=== PATIENT | male | born 1965 | race Caucasian/White ===

== ENCOUNTER 2017-10-12 12:10 | Emergency (ER) | payer BC ==
[~2017-10-12] VITALS: Ht 182.9 cm; Wt 79.4 kg
[~2017-10-12 12:10] MED LIST: AZIT250 PO; BUTASPCAFT PO; CHLO25 PO; CIPR500 PO; CLIN300 PO; DICY20 PO; HYDACE5 PO; LEVFLO500 PO; LISI10 PO; LISI5 PO; MOXI400 PO; NASACORT10.8 ML NS; OXYACE5T PO; Omeprazole20 M1 PO; PROM25 PO; PSEU120ER PO; ROSU5 PO; SUDOGEST COLD PO; UNKOWN HTN MED; XYZAL; [UNRECOGNIZED DRUG - REMARK]
[2017-10-12 14:26] LABS: BASOPHILS ABSOLUTE AUTO 0.06 K/mm3 (0.00-0.23); BASOPHILS PERCENT AUTO 1 % (0-2); EOSINOPHILS ABSOLUTE AUTO 0.04 K/mm3 (0.00-0.68); EOSINOPHILS PERCENT AUTO 1 % (0-6); Hematocrit 38.1 % (37.0-53.0); Hemoglobin 13.4 g/dL (13.5-17.5); IMMATURE GRAN ABSOLUTE AUTO 0.01 K/mm3 (0.00-0.10); IMMATURE GRAN PERCENT AUTO 0 % (0-1); LYMPHOCYTES ABSOLUTE AUTO 0.77 K/mm3 (0.84-5.20); LYMPHOCYTES PERCENT AUTO 15 % (21-46); MONOCYTES ABSOLUTE AUTO 0.65 K/mm3 (0.16-1.47); MONOCYTES PERCENT AUTO 12 % (4-13); Mean Corpuscular HGB 33.6 pg (26.0-34.0); Mean Corpuscular HGB Conc 35.2 g/dL (31.5-36.5); Mean Corpuscular Volume 96 fL (80-100); Mean Platelet Volume 8.7 fL (9.1-12.4); NEUTROPHILS ABSOLUTE AUTO 3.72 K/mm3 (1.96-9.15); NEUTROPHILS PERCENT AUTO 71 % (41-73); Platelet Count 111 K/mm3 (150-400); RDW Coefficient Variation 13.3 % (11.7-14.2); RDW Standard Deviation 47.5 fL (35.1-46.3); Red Blood Cell Count 3.99 M/mm3 (4.30-5.90); White Blood Cell Count 5.25 K/mm3 (4.00-11.30)
[2017-10-12 14:51] LABS: Alanine Aminotransfer (ALT/SGP 52 U/L (12-78); Albumin, Blood 3.7 g/dL (3.4-5.0); Albumin/Globulin Ratio 0.9 (0.8-1.8); Alk Phos 160 U/L (50-136); Anion Gap 11 mmol/L (6-16); Aspartate Aminotrans (AST/SGOT 107 U/L (12-37); Bilirubin, Total 4.9 mg/dL (0.1-1.0); Blood Urea Nitrogen 7 mg/dL (8-24); Bun/Creatinine Ratio 11.9 (12.0-20.0); CO2, Blood 26 mmol/L (21-32); Calcium, Blood 8.9 mg/dL (8.5-10.1); Chloride, Blood 100 mmol/L (98-108); Creatinine, Blood 0.59 mg/dL (0.60-1.20); Ethanol (Alcohol), Blood, Med 4 mg/dL; Globulin, Blood 4.2 g/dL (2.2-4.0); Glomerular Filtration Rate >60 (60-); Glucose, Blood 84 mg/dL (70-99); Potassium, Blood 3.8 mmol/L (3.5-5.5); Sodium, Blood 137 mmol/L (136-145); Total Protein, Blood 7.9 g/dL (6.4-8.2)
[2017-10-12] MEDS ORDERED: Percocet 5-3251 EACH PO (16:56)
[2017-10-12] MEDS ORDERED: Zofran8 MG PO (16:56)
[2018-06-14] MEDS ORDERED: PSEU120ER PO (12:47)
[2018-06-15] MEDS ORDERED: OXYC5 (21:14)
== END 2017-10-12 17:05 | disposition home or self-care (01) ==
LOC: ER 12:10
PROVIDERS: Emergency Medicine
DX: G89.18 Other acute postprocedural pain (principal); M54.2 Cervicalgia; K70.10 Alcoholic hepatitis without ascites; F10.10 Alcohol abuse, uncomplicated; E80.6 Other disorders of bilirubin metabolism; I10 Essential (primary) hypertension; Z79.899 Other long term (current) drug therapy; Z87.891 Personal history of nicotine dependence
CPT/HCPCS: 36415; 72125; 80053; 85025; 96361; 96372; 96374; 96375; 99284; G0480; J1170; J1200; J2765; J7030

== ENCOUNTER → 2018-08-11 | Outpatient (CLI) | payer BC ==
[~2018-08-11] MED LIST changes: +OXYC5; +Percocet 5-3251 EACH PO; +Zofran8 MG PO
[2018-08-11 12:27] LABS: BASOPHILS PERCENT AUTO 2 % (0-2); EOSINOPHILS ABSOLUTE AUTO 0.25 K/mm3 (0.00-0.68); EOSINOPHILS PERCENT AUTO 5 % (0-6); Hematocrit 37.6 % (37.0-53.0); Hemoglobin 12.4 g/dL (13.5-17.5); IMMATURE GRAN ABSOLUTE AUTO 0.01 K/mm3 (0.00-0.10); IMMATURE GRAN PERCENT AUTO 0 % (0-1); LYMPHOCYTES ABSOLUTE AUTO 0.68 K/mm3 (0.84-5.20); LYMPHOCYTES PERCENT AUTO 14 % (21-46); MONOCYTES ABSOLUTE AUTO 0.66 K/mm3 (0.16-1.47); MONOCYTES PERCENT AUTO 14 % (4-13); Mean Corpuscular HGB 36.4 pg (26.0-34.0); Mean Corpuscular Volume 110 fL (80-100); Mean Platelet Volume 9.8 fL (9.1-12.4); NEUTROPHILS ABSOLUTE AUTO 3.07 K/mm3 (1.96-9.15); NEUTROPHILS PERCENT AUTO 64 % (41-73); Platelet Count 106 K/mm3 (150-400); RDW Standard Deviation 58.1 fL (35.1-46.3); Red Blood Cell Count 3.41 M/mm3 (4.30-5.90); White Blood Cell Count 4.77 K/mm3 (4.00-11.30)
[2018-08-11 12:30] LABS: Alanine Aminotransfer (ALT/SGP 38 U/L (12-78); Albumin, Blood 2.7 g/dL (3.4-5.0); Albumin/Globulin Ratio 0.6 (0.8-1.8); Alk Phos 122 U/L (50-136); Anion Gap 6 mmol/L (6-16); Aspartate Aminotrans (AST/SGOT 68 U/L (12-37); Blood Urea Nitrogen 10 mg/dL (8-24); Bun/Creatinine Ratio 17.2 (12.0-20.0); CO2, Blood 27 mmol/L (21-32); Calcium, Blood 8.3 mg/dL (8.5-10.1); Chloride, Blood 107 mmol/L (98-108); Creatinine, Blood 0.58 mg/dL (0.60-1.20); Globulin, Blood 4.5 g/dL (2.2-4.0); Glomerular Filtration Rate >60 (60-); Glucose, Blood 178 mg/dL (70-99); Potassium, Blood 3.9 mmol/L (3.5-5.5); Sodium, Blood 140 mmol/L (136-145); Total Protein, Blood 7.2 g/dL (6.4-8.2)
== END ==
LOC: LAB SHORT 12:05 → LAB 12:05
PROVIDERS: Nurse Practitioner Family
DX: R73.9 Hyperglycemia, unspecified (principal)
CPT/HCPCS: 80053; 83036; 85025

== ENCOUNTER 2020-09-01 21:39 | Inpatient (IN) | payer OTHER ==
[~2020-09-01] VITALS: Ht 182.9 cm; Wt 90.8 kg
[2020-09-01 22:53] LABS: BASOPHILS ABSOLUTE AUTO 0.05 K/mm3 (0.00-0.23); BASOPHILS PERCENT AUTO 1 % (0-2); EOSINOPHILS PERCENT AUTO 0 % (0-6); Hematocrit 32.8 % (37.0-53.0); Hemoglobin 11.3 g/dL (13.5-17.5); IMMATURE GRAN ABSOLUTE AUTO 0.03 K/mm3 (0.00-0.10); IMMATURE GRAN PERCENT AUTO 0 % (0-1); LYMPHOCYTES ABSOLUTE AUTO 0.47 K/mm3 (0.84-5.20); LYMPHOCYTES PERCENT AUTO 5 % (21-46); MONOCYTES ABSOLUTE AUTO 0.97 K/mm3 (0.16-1.47); MONOCYTES PERCENT AUTO 10 % (4-13); Mean Corpuscular HGB 36.3 pg (26.0-34.0); Mean Corpuscular HGB Conc 34.5 g/dL (31.5-36.5); Mean Corpuscular Volume 106 fL (80-100); Mean Platelet Volume 10.4 fL (9.1-12.4); NEUTROPHILS PERCENT AUTO 84 % (41-73); Platelet Count 88 K/mm3 (150-400); RDW Coefficient Variation 13.2 % (11.7-14.2); RDW Standard Deviation 50.7 fL (35.1-46.3); Red Blood Cell Count 3.11 M/mm3 (4.30-5.90); White Blood Cell Count 9.72 K/mm3 (4.00-11.30)
[2020-09-01 23:10] LABS: Alanine Aminotransfer (ALT/SGP 39 U/L (12-78); Albumin, Blood 2.8 g/dL (3.4-5.0); Albumin/Globulin Ratio 0.7 (0.8-1.8); Alk Phos 47 U/L (50-136); Anion Gap 6 mmol/L (6-16); Aspartate Aminotrans (AST/SGOT 58 U/L (12-37); Bilirubin, Total 5.5 mg/dL (0.1-1.0); Blood Urea Nitrogen 23 mg/dL (8-24); Bun/Creatinine Ratio 44.8 (12.0-20.0); CO2, Blood 30 mmol/L (21-32); Calcium, Blood 8.2 mg/dL (8.5-10.1); Chloride, Blood 105 mmol/L (98-108); Creatinine, Blood 0.51 mg/dL (0.60-1.20); Globulin, Blood 3.8 g/dL (2.2-4.0); Glomerular Filtration Rate >60 (60-); Glucose, Blood 312 mg/dL (70-99); Potassium, Blood 5.3 mmol/L (3.5-5.5); Sodium, Blood 141 mmol/L (136-145); Total Protein, Blood 6.6 g/dL (6.4-8.2)
[2020-09-02 01:17] LABS: BASOPHILS ABSOLUTE AUTO 0.04 K/mm3 (0.00-0.23); BASOPHILS PERCENT AUTO 0 % (0-2); EOSINOPHILS PERCENT AUTO 0 % (0-6); Hematocrit 31.4 % (37.0-53.0); Hemoglobin 10.7 g/dL (13.5-17.5); IMMATURE GRAN ABSOLUTE AUTO 0.03 K/mm3 (0.00-0.10); IMMATURE GRAN PERCENT AUTO 0 % (0-1); LYMPHOCYTES ABSOLUTE AUTO 0.54 K/mm3 (0.84-5.20); LYMPHOCYTES PERCENT AUTO 6 % (21-46); MONOCYTES ABSOLUTE AUTO 1.39 K/mm3 (0.16-1.47); MONOCYTES PERCENT AUTO 15 % (4-13); Mean Corpuscular HGB Conc 34.1 g/dL (31.5-36.5); Mean Corpuscular Volume 106 fL (80-100); Mean Platelet Volume 9.8 fL (9.1-12.4); NEUTROPHILS ABSOLUTE AUTO 7.57 K/mm3 (1.96-9.15); NEUTROPHILS PERCENT AUTO 79 % (41-73); Platelet Count 86 K/mm3 (150-400); RDW Coefficient Variation 13.2 % (11.7-14.2); Red Blood Cell Count 2.97 M/mm3 (4.30-5.90); White Blood Cell Count 9.57 K/mm3 (4.00-11.30)
--- NOTE | 2020-09-02 02:05 | NUR ---
ICU ADMIT PT BROUGHT TO ICU-10 BY KADIE FROM ER @ APPROX 0045. PT DROWSY, OPENING EYES ONLY FOR A MOMENT WHEN SPOKEN TO, THEN GOING BACK TO SLEEP. PT SLID OVER FROM RNEY TO ICU BED BY 3 STAFF MEMBERS. PROTONIX GTT @ OCTREOTIDE GTT INFUSING UPON ARRIVAL TO UNIT. IV FLUIDS THEN INITIATED PER ORDRES. PT ABLE TO ANSWER Q's APPROPRIATELY. PT REPORTS DAILY WINE DRINKING W/ PT REPORT OF "CAN'T SAY" FOR AMOUNT. PT REPORTS AMOUNT AT LEAST 1 WHOLE BOTTLE BUT NOT 2 BOTTLES. PT REPORTS LAST DRINK "YESTERDAY" 08/31/20. PT REPORTS NOT EATING ANYTHING FOR AT LEAST 2 DAYS D/T "NOT HUNGRY." PT DENYING NAUSEA, ABD PAIN/TENDERNESS OR ANY OTHER PAIN DISCOMFORT UPON ARRIVAL TO UNIT. PT VSS. MONITOR SHOWING ST, HR 100-120's. SPO2 > 92% ON RA. PT NOW SLEEPING IN RM. PT GIRLFRIEND WILLIAM UPDATED W/ PT CONSENT. WILL CONTINUE TO MONITOR & PROVIDE CARE.
[2020-09-02 03:43] LABS: Mean Corpuscular HGB 36.8 pg (26.0-34.0); Mean Corpuscular HGB Conc 34.5 g/dL (31.5-36.5); Mean Corpuscular Volume 107 fL (80-100); Mean Platelet Volume 10.5 fL (9.1-12.4); Platelet Count 77 K/mm3 (150-400); RDW Coefficient Variation 13.4 % (11.7-14.2); RDW Standard Deviation 52.1 fL (35.1-46.3); Red Blood Cell Count 2.72 M/mm3 (4.30-5.90); White Blood Cell Count 8.93 K/mm3 (4.00-11.30)
--- NOTE | 2020-09-02 03:50 | NUR ---
WEAKNESS / HR PT ATTEMPT TO GET UP FOR RESTROOM USE W/ ACCIDENTAL REMOVAL OF 2 PIV's. PT ASSISTED TO STANDING POSITION FOR URINAL USE AT BEDSIDE PER PT PREFERENCE. PT VERY WEAK, ONLY ABLE TO STAND FOR A MOMENT, HR INCREASING UP TO 150's. PT THEN ASSISTED BACK INTO BED W/ HR RETURN TO 100-110's, ST.
[2020-09-02 03:57] LABS: International Normalized Ratio 1.52; Prothrombin Time Results 15.9 Sec (9.7-11.5)
[2020-09-02 04:08] LABS: Anion Gap 4 mmol/L (6-16); Blood Urea Nitrogen 25 mg/dL (8-24); Bun/Creatinine Ratio 33.6 (12.0-20.0); CO2, Blood 31 mmol/L (21-32); Calcium, Blood 7.9 mg/dL (8.5-10.1); Chloride, Blood 104 mmol/L (98-108); Creatinine, Blood 0.75 mg/dL (0.60-1.20); Glomerular Filtration Rate >60 (60-); Glucose, Blood 386 mg/dL (70-99); Potassium, Blood 4.9 mmol/L (3.5-5.5); Sodium, Blood 139 mmol/L (136-145)
[2020-09-02 04:12] LABS: Albumin, Blood 2.6 g/dL (3.4-5.0); Albumin/Globulin Ratio 0.8 (0.8-1.8); Bilirubin, Indirect 3.6 mg/dL (0.1-0.7); Bilirubin, Total 5.6 mg/dL (0.1-1.0); Globulin, Blood 3.4 g/dL (2.2-4.0)
--- NOTE | 2020-09-02 06:29 | NUR ---
CBG, PHOS / CALL TO MD CALL TO MD MADRIGAL TO REPORT ELEVATED CBG OF 386 & PHOS OF 2.0 W/ AM LABS. MD W/ NEW ORDERS FOR CBG MONITORING, PRINCE INSULIN COVERAGE, & IV NA PHOS, SEE ORDERS.
--- NOTE | 2020-09-02 06:42 | NUR ---
SHIFT SUMMARY PT SLEEPING MAJORITY OF SHIFT. WAKES TO VERBAL STIMULI. ANSWERS MOST Q's APPROPRIATELY. PT VSS. SPO2 > 92% ON RA. MONITOR SHOWING SR-ST, HR 90's-120's W/ BRIEF, NONSUSTAINED INCREASE TO 150's UPON ACTIVITY STANDING AT BEDSIDE. PT CONTINUES TO BE VERY WEAK. PT ENCOURAGED TO USE URINAL IN BED OR SITTING UP AT EDGE OF BED W/ OUT STANDING. PT DISREGARDING STAFF ADVISEMENT OF THIS, UNCLEAR IF PT NOT FULLY UNDERSTANDING STAFF GUIDANCE OR CHOOSING TO DISREGARD. PT ONLY ATTEMPTING TO GET OOB X2 THIS SHIFT, BOTH OCCURRENCES FOR URINAL USE. PT DENIES NAUSEA, ABD PAIN/DISCOMFORT. NO EMESIS SINCE ARRIVAL TO ICU. PT NPO. PROTONIX GTT, OCTREOTIDE GTT & NA PHOS GTT INFUSING PER ORDERS.
--- NOTE | 2020-09-02 07:40 | NUR ---
ASSUMED CARE BEDSIDE REPORT RECIEVED. PT IS LAYING IN BED TURNING FROM SIDE TO SIDE. PT IS SOMNOLENT, BUT AROUSES TO VERBAL STIMULI BREIFLY. PT SPEECH IS SLURRED AND SLOW TO RESPOND, BUT PT ANSWERS SIMPLE QUESTIONS APPROPRIATELY. PT DENIES PAIN. VITAL SIGNS STABLE, PT ON ROOM AIR. PROTONIX INFUSING AT 10 ML/HR, SANDOSTATIN AT 25 ML/HR, AND SODIUM PHOS IVPB. PT WITHOUT NOTICEABLE TREMORS AT THIS TIME. PT WEAK WITH MOVEMENT. WILL CONTINUE TO MONITOR.
[2020-09-02 10:03] LABS: Influenza A, PCR Negative (NEGATIVE); Influenza B, PCR Negative (NEGATIVE); Resp Syncytial Virus, PCR Negative (NEGATIVE); SARS-Cov-2 (COVID-19) PCR, MMC Negative (NEGATIVE)
--- NOTE | 2020-09-02 17:24 | NUR ---
SHIFT SUMMARY PT WITH INCREASING CONFUSION AND IMPULSIVITY THIS AFTERNOON REQUIRING GENARO VEST. PT VITAL SIGNS HAVE REMAINED STABLE. PT REMAINS AROUSEABLE TO VERBAL STIMULI, BUT IS MORE CONFUSED AT THIS TIME. PT SHIFTING SELF IN BED INDEPENDENTLY AND ATTEMPTING TO GET UP OUT OF BED AT TIMES. PT ON 2L O2 NC. PROTONIX INFUSING AT 10 ML/HR, SANDOSTATIN AT 25 ML/HR, AND BANANA BAG AT 200 ML/HR. PT WITH MULTIPLE INCONTINENT VOIDS. PT SIGNIFICANT OTHER AT BEDSIDE TO VISIT FOR SHORT PERIOD EARLY THIS AFTERNOON. DR TOBIAS HAS SEEN PT TODAY AND REVIEWED PLAN OF CARE. WILL CONTINUE TO MONITOR AND REPORT OFF TO ONCOMING RN.
--- NOTE | 2020-09-02 19:30 | NUR ---
ASSUMED CARE OF PT, PROTONIX AND SANDOSTATIN GTTS VERIFIED WITH OFFGOING RN. PT APPEARS TO BE SLEEPING ON ARRIVAL TO ROOM, ROUSES BRIEFLY WITH SPOKEN NAME, RESPONSE IS MUMBLED AND DIFFICULT TO UNDERSTAND, ONLY OCCASIONAL WORD IS ENUNCIATED WELL ENOUGH TO UNDERSTAND. DOES OPEN EYES TO COMMAND OTHERWISE DOES NOT FOLLOW DIRECTION AT THIS TIME. PT IS RELAXED IN APPEARANCE AND RESTING WITHOUT AGITATION EVEN WITH INCREASED STIMULUS IN ROOM. OCCASIONAL SNORING RESPIRATION IS NOTED. HE DOES TURN SELF WELL SIDE TO SIDE EVEN WITH GENARO VEST RESTRAINT IN PLACE. VITAL SIGNS ARE STABLE AT THIS TIME. SATS ARE MAINTAINING WITH OXYGEN VIA NASAL CANNULA AT 1 L/MIN, RATE TEENS, NO VISIBLE INCREASED WORK OF BREATHING IS NOTED. SINUS TACH NOTED ON MONITOR, RATE LOW 100-110S, PRESSURES MAINTAINING, BRISK CAP REFILL, NO EDEMA IS NOTED. BOWEL TONES HYPOACTIVE, ABD SOFT, NO GRIMACING OR GUARDING ON LIGHT PALPATION. PT HAS BEEN INCONT OF URINE PER OFFGOING RN, WILL PLACE ATTENDS AND MONITOR FREQUENTLY.
[2020-09-02 23:35] LABS: BASOPHILS ABSOLUTE AUTO 0.09 K/mm3 (0.00-0.23); BASOPHILS PERCENT AUTO 1 % (0-2); EOSINOPHILS ABSOLUTE AUTO 0.18 K/mm3 (0.00-0.68); EOSINOPHILS PERCENT AUTO 2 % (0-6); Hematocrit 30.4 % (37.0-53.0); Hemoglobin 10.3 g/dL (13.5-17.5); IMMATURE GRAN ABSOLUTE AUTO 0.02 K/mm3 (0.00-0.10); IMMATURE GRAN PERCENT AUTO 0 % (0-1); LYMPHOCYTES ABSOLUTE AUTO 0.85 K/mm3 (0.84-5.20); LYMPHOCYTES PERCENT AUTO 10 % (21-46); MONOCYTES PERCENT AUTO 17 % (4-13); Mean Corpuscular HGB 36.3 pg (26.0-34.0); Mean Corpuscular HGB Conc 33.9 g/dL (31.5-36.5); Mean Corpuscular Volume 107 fL (80-100); Mean Platelet Volume 10.1 fL (9.1-12.4); NEUTROPHILS ABSOLUTE AUTO 5.64 K/mm3 (1.96-9.15); NEUTROPHILS PERCENT AUTO 69 % (41-73); Platelet Count 74 K/mm3 (150-400); RDW Coefficient Variation 13.2 % (11.7-14.2); RDW Standard Deviation 51.7 fL (35.1-46.3); Red Blood Cell Count 2.84 M/mm3 (4.30-5.90); White Blood Cell Count 8.18 K/mm3 (4.00-11.30)
[2020-09-03 06:14] LABS: BASOPHILS ABSOLUTE AUTO 0.12 K/mm3 (0.00-0.23); BASOPHILS PERCENT AUTO 1 % (0-2); EOSINOPHILS ABSOLUTE AUTO 0.22 K/mm3 (0.00-0.68); EOSINOPHILS PERCENT AUTO 2 % (0-6); Hematocrit 29.9 % (37.0-53.0); IMMATURE GRAN ABSOLUTE AUTO 0.04 K/mm3 (0.00-0.10); IMMATURE GRAN PERCENT AUTO 0 % (0-1); LYMPHOCYTES ABSOLUTE AUTO 0.84 K/mm3 (0.84-5.20); LYMPHOCYTES PERCENT AUTO 9 % (21-46); MONOCYTES ABSOLUTE AUTO 1.38 K/mm3 (0.16-1.47); MONOCYTES PERCENT AUTO 15 % (4-13); Mean Corpuscular HGB 36.1 pg (26.0-34.0); Mean Corpuscular HGB Conc 33.4 g/dL (31.5-36.5); Mean Corpuscular Volume 108 fL (80-100); Mean Platelet Volume 10.4 fL (9.1-12.4); NEUTROPHILS PERCENT AUTO 72 % (41-73); Platelet Count 81 K/mm3 (150-400); RDW Coefficient Variation 13.2 % (11.7-14.2); RDW Standard Deviation 52.7 fL (35.1-46.3); Red Blood Cell Count 2.77 M/mm3 (4.30-5.90)
[2020-09-03 06:30] LABS: Alanine Aminotransfer (ALT/SGP 33 U/L (12-78); Albumin, Blood 2.6 g/dL (3.4-5.0); Albumin/Globulin Ratio 0.8 (0.8-1.8); Alk Phos 43 U/L (50-136); Anion Gap 6 mmol/L (6-16); Aspartate Aminotrans (AST/SGOT 55 U/L (12-37); Bilirubin, Total 6.1 mg/dL (0.1-1.0); Blood Urea Nitrogen 19 mg/dL (8-24); Bun/Creatinine Ratio 27.1 (12.0-20.0); CO2, Blood 26 mmol/L (21-32); Calcium, Blood 7.9 mg/dL (8.5-10.1); Chloride, Blood 112 mmol/L (98-108); Globulin, Blood 3.1 g/dL (2.2-4.0); Glomerular Filtration Rate >60 (60-); Glucose, Blood 194 mg/dL (70-99); Phosphorus, Blood 2.2 mg/dL (2.5-4.9); Sodium, Blood 144 mmol/L (136-145); Total Protein, Blood 5.7 g/dL (6.4-8.2)
--- NOTE | 2020-09-03 06:37 | NUR ---
PT REMAINS LETHARGIC THROUGHOUT NOC, HE IS NOTED TO HAVE NOT TURNED AND REPOSITIONED HIMSELF FOR MORE THAN 3 HOURS AT 0600 THIS AM, PT WAS ASSISTED TO TURN TO RIGHT SIDE THROUGHOUT NOC HE HAS FAVORED SUPINE AND LEFT SIDE LYING. HE CONTINUES TO MAINTAIN SATS ON ROOM AIR THIS AM, DID REQUIRE 2 L/MIN VIA NASAL CANNULA FOR APPROXIMATELY 2 HOURS NEAR MIDNOC FOR INTERMITTENT EPISODES OF DESATURATION TO LOW 80S, SATS THIS AM ARE REMAINING UPPER 90S ON ROOM AIR. VITALS HAVE REMAINED STABLE. PT IS RESPONSIVE TO STERNAL RUB AND IS NOTED TO REACH UP TO PUSH NOXIOUS STIMULI AWAY FROM STERNUM. EXTRA LARGE INCONT VOID THIS SHIFT, ATTENDS REMAIN DRY AT THIS TIME. SCLERA APPEAR JAUNDICED THIS AM.
--- NOTE | 2020-09-03 09:10 | NUR ---
ASSUMED CARE BEDSIDE REPORT FROM ANKIT DOMINIQUE. PT RESTING IN BED. WAKES c PAINFUL STIMULI. DOES NOT FOLLOW DIRECTIONS OR ANSWER ANY QUESTIONS. MOANS ONLY. GROSS MOVEMENT TO ALL EXTREMITIES. PT INCONTIENT OF URINE. ATTENDS CHANGED. URINE DARK, JB. LUNGS CLEAR THROUGHOUT. PT CLENCHES JAW, ORAL CARE DIFFICULT TO PERFORM. ABD ROUND, SOFT NON TENDER. BT X 4. VSS. PROTONIX AND OCTREOTIDE GTT INFUSING. WILL CONTINUE TO MONITOR.
--- NOTE | 2020-09-03 18:33 | NUR ---
SHIFT SUMMARY PT REMAINS RESPONSIVE TO PAINFUL STIMULI. OCCASIONAL MOANS. DOES NOT FOLLOW COMMANDS. LUNGS CLEAR. VSS. RECTAL TUBE PLACED AND LACTULOSE RETENTION ENEMAS STARTED. POWERGLIDE PLACED TO RUE. OCTREOTIDE AND PROTONIX GTT CONTINUE. CONDOM CATH PLACED. PT STATUS CHANGED TO PCU. DR TOBIAS ROUNDED, PLAN TO SCOPE WHEN MORE ALERT SINCE PT IS NOT HAVING ACTIVE BLEEDING. WILL CONTINUE TO MONITOR UNTIL REPORT TO ONCOMING NURSE.
--- NOTE | 2020-09-04 02:34 | NUR ---
ASSUMED CARE AT 1900. UNABLE TO AROUSE WITH LOUD AGGRESSIVE VERBAL STIMULATION. NEVER OPENS EYES SPONTANEOUSLY. JUST NOW A SLIGHT ATTEMPT TO OPEN EYES WITH LOUD VERBAL AND STERNAL RUB. NO OTHER ATTEMPTS ALL NOC. A FEW LOUD YAWNS AND MOAN W/ YAWN,. SNORING COMMON. SAT WNL 95-98 RA. CLENCHES DOWN W/ MOUTH CARE PADDED TONGUE DEPRESSOR USE AND SOME SOLUTIONS AND SX ATTEMPTS FOR NEEDED MOUSTH CARE. MOUTH BREATHER W/ SNORE. ASPIRATIOIN PRECAUTIONS HOB ALWAYS HIGH FOWLERS. NO VOMITING .WITH MOUTH CARE AND TRIED TO EVALUATE FOR POSSIBLE SORE THAT CAUSES SMALL AMT OF BLEEDING FROM TONGUE. NEVER ASSOCIATED WITH ANY TYPE OF BLOODY EMESIS.UNABLE TO PIN POINT SPOTS WITH CLENCHED TEETH FOR MOUTH CARE. USUALLY WITH PAINFUL IRRITATING STIMULI, BOTH ARMS JERK UP SLIGHTLY IF TO ADVANCE TOWARD THE DISCOMFORT. BOTH GREAT TOES FAN UPWARD WITH STIMULI. NO PURPOSFUL MOVING OF ANY EXTREMITY SPONTANEOUSLY. NO MOVEMENT WHEN TURNING . ASHLYN 3/3..CONJUGATE EYE MOVEMENT BUT NOT TO FOLLOW AN OBJECT WHEN EYE LIDS OPENED BY STAFF. LACTULOSE 300 ML INSTILLED AT 1999, PER DAY RN, UNABLE TO RETAIN 2ND DOSE 2 HR AGO. REPOSITIONED RECTAL TUBE AND SEEMS TO HAVE SOME RETENTION W/ CLAMPING AND 200 ML RETURNED WHEN UNCLAMPED. THERE WAS ALSO SOME TARRY BROWN LIQUID AND CLEAR LIQUID ON CHUX. CONDOM CATH INTACT AND VERY POOR UO BY THIS TIME.
[2020-09-04 03:38] LABS: BASOPHILS ABSOLUTE AUTO 0.08 K/mm3 (0.00-0.23); BASOPHILS PERCENT AUTO 1 % (0-2); EOSINOPHILS ABSOLUTE AUTO 0.32 K/mm3 (0.00-0.68); EOSINOPHILS PERCENT AUTO 3 % (0-6); Hematocrit 27.3 % (37.0-53.0); Hemoglobin 9.1 g/dL (13.5-17.5); IMMATURE GRAN ABSOLUTE AUTO 0.06 K/mm3 (0.00-0.10); IMMATURE GRAN PERCENT AUTO 1 % (0-1); LYMPHOCYTES ABSOLUTE AUTO 0.79 K/mm3 (0.84-5.20); LYMPHOCYTES PERCENT AUTO 8 % (21-46); MONOCYTES ABSOLUTE AUTO 1.13 K/mm3 (0.16-1.47); MONOCYTES PERCENT AUTO 12 % (4-13); Mean Corpuscular HGB Conc 33.3 g/dL (31.5-36.5); Mean Corpuscular Volume 108 fL (80-100); Mean Platelet Volume 9.9 fL (9.1-12.4); NEUTROPHILS ABSOLUTE AUTO 7.17 K/mm3 (1.96-9.15); NEUTROPHILS PERCENT AUTO 75 % (41-73); Platelet Count 80 K/mm3 (150-400); RDW Coefficient Variation 13.5 % (11.7-14.2); RDW Standard Deviation 52.6 fL (35.1-46.3); Red Blood Cell Count 2.53 M/mm3 (4.30-5.90); White Blood Cell Count 9.55 K/mm3 (4.00-11.30)
[2020-09-04 03:53] LABS: Alanine Aminotransfer (ALT/SGP 32 U/L (12-78); Albumin, Blood 2.5 g/dL (3.4-5.0); Albumin/Globulin Ratio 0.9 (0.8-1.8); Alk Phos 44 U/L (50-136); Anion Gap 5 mmol/L (6-16); Aspartate Aminotrans (AST/SGOT 52 U/L (12-37); Bilirubin, Total 5.8 mg/dL (0.1-1.0); Blood Urea Nitrogen 14 mg/dL (8-24); Bun/Creatinine Ratio 19.2 (12.0-20.0); CO2, Blood 27 mmol/L (21-32); Calcium, Blood 7.6 mg/dL (8.5-10.1); Chloride, Blood 114 mmol/L (98-108); Creatinine, Blood 0.73 mg/dL (0.60-1.20); Globulin, Blood 2.9 g/dL (2.2-4.0); Glomerular Filtration Rate >60 (60-); Glucose, Blood 180 mg/dL (70-99); Magnesium, Blood 1.9 mg/dL (1.6-2.4); Phosphorus, Blood 2.8 mg/dL (2.5-4.9); Potassium, Blood 3.6 mmol/L (3.5-5.5); Sodium, Blood 146 mmol/L (136-145); Total Protein, Blood 5.4 g/dL (6.4-8.2)
--- NOTE | 2020-09-04 06:00 | NUR ---
SHIFT SUMMARY. DCD POSY AT 0200. ONLY 75 ML IN LENTZ BY 0300. BLADDER SCAN >300. PLACED STRAIGHT CATH AND APPROX 500 ML URINE RETURNED. LEFT IN LENTZ. NO AROUSAL CHANGE FROM ABOVE NOTE, NOTED SAT DROPPED W/O EVIDENCE OF SLEEP APNEA , PLACED O2 ON AT 0700 2L. SLIGHTLY OPENS EYES TO STERNAL RUB AND STIFFENS ARMS DRAWING UPWARD. PULLS AWAY SLIGHTLY TO STIMULUS OF FEET.ST ALL NOC. 105 AVERAGE
--- NOTE | 2020-09-04 07:06 | NUR ---
ASSUMED CARE: PT RESTING IN BED, GENARO OFF. SANDOSTATIN AND PROTONIX GTTS RUNNING. 2L OF OXYGEN IN PLACE AFTER PT WAS DESATTING DURING SLEEP. PT IS UNRESPONSIVE. NIGHT RN DEMONSTRATED NOXIOUS STIMULI TO WHICH PT GRIMACED AND MOVED EYES BUT DID NOT FOLLOW INSTRUCTIONS OR VERBALLY RESPOND. NSR ON TELE. RECTAL TUBE WITH BLACK LIQUID STOOL. NO ACUTE NEEDS OR CONCERNS AT THIS TIME.
--- NOTE | 2020-09-04 08:00 | NUR ---
DR ARANGO CAME TO SEE PT AND IS AWARE OF HIS SOMNOLENCE AND UNRESPONSIVENESS. SEE NEW ORDERS. DR SUSPICIOUS OF PERITONITIS SO ORDERING ABX.
--- NOTE | 2020-09-04 08:24 | NUR ---
DR TOBIAS CAME TO SEE PT AND DOES NOT BELIEVE PT HAS PERITONITIS BUT DOES NOT WISH TO DC DR ARANGO'S ABX ORDER. AGREES WITH PLAN FOR AMMONIA RECHECK AND LACTULOSE ENEMAS
--- NOTE | 2020-09-04 10:34 | NUR ---
PT HAS LENTZ IN PLACE BUT HAVE NOT BEEN ABLE TO COLLECT URINE FOR UA SPECIMEN. BLADDER SCAN TO CHECK FOR RETENTION WITH 0 VALUE NOTED. WHILE AT BEDSIDE, THIS RN OBSERVED RED, BLOTCHY RASH TO PT'S SHOULDERS AND NECK. CEFTRIAXONE RECIEVED THIS AM AND PENICILLIN ON ALLERGY LIST. CALL TO DR ARANGO WITH UPDATE. ABX CHANGES TO BE ORDERED BY MD. ALLERGY LIST UPDATED. PT DOES NOT APPEAR TO BE IN ANY RESPIRATORY DISTRESS. 99% O2 ON 2L AT THIS TIME.
--- NOTE | 2020-09-04 13:17 | NUR ---
CALL TO DR ARANGO TO REPORT THAT PT'S LENTZ HAS NOT HAD ANY OUTPUT ALL SHIFT. NEW ORDERS FOR BOLUS FLUIDS.
--- NOTE | 2020-09-04 15:53 | NUR ---
PT'S S.O WAS HERE TO SEE HIM. SAT AT BEDSIDE PLAYING MUSIC FOR HIM. SHE WENT HOME FOR THE DAY AND TOOK PT'S PHONE WITH HER TO CHARGE IT
--- NOTE | 2020-09-04 16:14 | NUR ---
CALL TO DR ARANGO DUE TO PT STILL NOT VOIDING AFTER 1L BOLUS. ORDERS FOR ANOTHER LITER AND MAINTENANCE FLUIDS. PT'S LUNG SOUNDS REMAIN UNCHANGED AND SATURATIONS REMAIN 99% ON 2L O2 FOR DESATURATION WHILE SLEEPING AT TIMES.
--- NOTE | 2020-09-04 18:42 | NUR ---
SHIFT SUMMARY: PT REMAINS UNRESPONSIVE WITH THE EXCEPTION OF OPENING HIS EYES AND GROANING AT TIMES. JAUNDICE, INCLUDING IN SCLERA, NO URINE THIS SHIFT. 2 BOLUSES GIVEN AND MAINTENANCE FLUIDS RUNNING. OCTREOTIDE AND PROTONIX GTTS RUNNING. MEDICATED X1 FOR HYPERTENSION. RECTAL TUBE IN PLACE PUTTING OUT BLACK STOOL WITH BAG CHANGED TWICE THIS SHIFT. NO FURTHER NEEDS AT THIS TIME
--- NOTE | 2020-09-04 20:29 | NUR ---
Care Assumed 1900 Pt responds to noxious stimuli, does not follow commands. Protonix infusing at 10 ml/hr, Sandostatin at 25 ml/hr, and 1/2 NS at 125 ml/hr. Waller in place with 0 mls of urine output. Rectal tube in place with dark brown loose stool. NSR. SBP 160's. Temp of 100.3. SPO2 99%, on 2 L via NC. Lung sounds clear, bowel tones active.
--- NOTE | 2020-09-04 21:09 | NUR ---
Call recieved from pts mother. Updated on pt status. All questions answered.
--- NOTE | 2020-09-04 22:03 | NUR ---
Update - elevated SBP Called PRACHI Henderson in regards to pts bp being elevated (SBP 172) and recieved orders for Hydralazine 10 mg IV Q6 PRN for SBP > 160.
--- NOTE | 2020-09-04 23:38 | NUR ---
UPDATE PT ATTEMPTING TO GET OUT OF BED. PT SITTING UP, MOVING UPPER EXTREMS, AND MOANING. DOES NOT FOLLOW COMMANDS. EYES OPEN BUT DOES NOT TRACK. POSY PLACED AND BED ALARM ON TO PREVENT FALL. PT BENDING WRIST TO SIT UP IN BED MULTIPLE TIMES AND DOES NOT FOLLOW DIRECTIONS. LEFT WRIST IV STARTED TO LEAK AND REMOVED. PTS SBP 140'S, SEE EMAR.
[2020-09-05 03:29] LABS: BASOPHILS ABSOLUTE AUTO 0.09 K/mm3 (0.00-0.23); BASOPHILS PERCENT AUTO 1 % (0-2); EOSINOPHILS ABSOLUTE AUTO 0.19 K/mm3 (0.00-0.68); EOSINOPHILS PERCENT AUTO 2 % (0-6); Hematocrit 26.6 % (37.0-53.0); Hemoglobin 8.9 g/dL (13.5-17.5); IMMATURE GRAN ABSOLUTE AUTO 0.06 K/mm3 (0.00-0.10); IMMATURE GRAN PERCENT AUTO 1 % (0-1); LYMPHOCYTES ABSOLUTE AUTO 0.76 K/mm3 (0.84-5.20); LYMPHOCYTES PERCENT AUTO 7 % (21-46); MONOCYTES ABSOLUTE AUTO 1.48 K/mm3 (0.16-1.47); MONOCYTES PERCENT AUTO 15 % (4-13); Mean Corpuscular HGB 36.8 pg (26.0-34.0); Mean Corpuscular HGB Conc 33.5 g/dL (31.5-36.5); Mean Corpuscular Volume 110 fL (80-100); Mean Platelet Volume 9.5 fL (9.1-12.4); NEUTROPHILS ABSOLUTE AUTO 7.63 K/mm3 (1.96-9.15); NEUTROPHILS PERCENT AUTO 75 % (41-73); Platelet Count 93 K/mm3 (150-400); RDW Coefficient Variation 13.9 % (11.7-14.2); RDW Standard Deviation 54.8 fL (35.1-46.3); Red Blood Cell Count 2.42 M/mm3 (4.30-5.90); White Blood Cell Count 10.21 K/mm3 (4.00-11.30)
[2020-09-05 03:46] LABS: Alanine Aminotransfer (ALT/SGP 29 U/L (12-78); Albumin, Blood 2.3 g/dL (3.4-5.0); Albumin/Globulin Ratio 0.8 (0.8-1.8); Alk Phos 44 U/L (50-136); Anion Gap 6 mmol/L (6-16); Aspartate Aminotrans (AST/SGOT 44 U/L (12-37); Bilirubin, Total 5.6 mg/dL (0.1-1.0); Blood Urea Nitrogen 13 mg/dL (8-24); Bun/Creatinine Ratio 17.7 (12.0-20.0); CO2, Blood 25 mmol/L (21-32); Calcium, Blood 7.4 mg/dL (8.5-10.1); Chloride, Blood 116 mmol/L (98-108); Creatinine, Blood 0.73 mg/dL (0.60-1.20); Glomerular Filtration Rate >60 (60-); Glucose, Blood 150 mg/dL (70-99); Potassium, Blood 3.3 mmol/L (3.5-5.5); Sodium, Blood 147 mmol/L (136-145); Total Protein, Blood 5.3 g/dL (6.4-8.2)
[2020-09-05 07:54] LABS: Source, Urine Catheter
[2020-09-05 07:58] LABS: Appearance, Urine Hazy (Clear); Blood, Urine 5+ (Neg); Color, Urine Amber (P-Yellow); Glucose Qualitative, Urine 2+ (Neg); Ketones, Urine 1+ (Neg); Leukocyte Esterase, Urine 3+ (Neg); Nitrite, Urine Pos (Neg); Protein, Urine 2+ (Neg); Urobilinogen, Urine 2+ (Normal)
[2020-09-05 08:06] LABS: Bilirubin, Urine 1+ (Neg)
[2020-09-05 08:07] LABS: Red Blood Cells, Urine 50-100 /hpf (0-2); White Blood Cells, Urine 25-50 /hpf (0-5)
[2020-09-05 08:08] LABS: Bacteria Mod /hpf; Mucus Light (0-Heavy); Squamous Epithelial Cells Few /hpf (Few)
--- NOTE | 2020-09-05 08:12 | NUR ---
SHIFT SUMMARY PT CONTINUES TO ATTEMPT TO SIT-UP IN BED AND MOVING FROM SIDE TO SIDE. HE IS NOT ABLE TO FOLLOW DIRECTIONS, OPENS EYES BUT NOT TRACKING. POSY AND SWB IN PLACE. LENTZ CATH IN PLACE WITH 800 MLS OF DARK TEA COLORED CLOUDY URINE. RECTAL TUBE IN PLACE WITH 200 MLS OF LIQUID BROWN STOOL. PT REMAINS ON 2 L VIA NC, SPO2 99%. NSR. SPOKE TO PTS GIRLFRIEND VIA PHONE AND UPDATED ON PT STATUS AFTER RECEIVING CALL. WILL REPORT TO ONCOMING SHIFT.
--- NOTE | 2020-09-05 08:15 | NUR ---
ASSUMED CARE BEDSIDE REPORT RECIEVED. PT IS LAYING IN BED MOANING OUT AND OCCASIONALLY ATTEMPTING TO SIT UP. PT IS UNABLE TO ANSWER QUESTIONS OR FOLLOW DIRECTIONS. PT WITH GENARO VEST AND SBW RESTRAINTS IN PLACE. PT ON 2L O2 NC INITIALLY. PT PLACED ON RA. VITAL SIGNS STABLE. PT WITH POWERGLIDE AND PERIPHERAL IV IN PLACE WITH PROTONIX INFUSING AT 10 ML/HR, SANDOSTATIN 25 ML/HR, 1/2 NS AT 125 ML/HR AND KCL IVPB. PT WITH LENTZ IN PLACE WITH DARK YELLOW/ORANGE OUTPUT NOTED. RECTAL TUBE IN PLACE WITH LIQUID BLACK OUTPUT NOTED. PT MOVING ALL EXTREMITIES. WILL CONTINUE TO MONITOR.
--- NOTE | 2020-09-05 17:15 | NUR ---
SHIFT SUMMARY NO ACUTE CHANGES THIS SHIFT. PT REMAINS CONFUSED AND IMPULSIVE. PT WITH MULTIPLE ATTEMPTS TO SIT UP AND SHIFT OUT OF BED. SBW RESTRAINTS AND GENARO VEST REMAIN IN PLACE. PT IS ABLE TO SPEAK SOME WORDS THIS AFTERNOON. PT OTHERWISE CONTINUES TO MOAN OUT. VITAL SIGNS HAVE REMAINED STABLE. PT ON RA. PROTONIX INFUSING AT 10 ML/HR, SANDOSTATIN AT 25 ML/HR, AND NS AT 125 ML/HR. LENTZ REMAINS IN PLACE WITH DARK ORANGE OUTPUT NOTED. RECTAL TUBE IN PLACE WITH LARGE VOLUME OF LIQUID BLACK OUTPUT NOTED. PT RECIEVED LACTULOSE ENEMAS THIS SHIFT. PT SIGNIFICANT OTHER AT BEDSIDE TO VISIT THIS AFTERNOON. WILL CONTINUE TO MONITOR AND REPORT OFF TO ONCOMING RN.
[2020-09-06 03:16] LABS: BASOPHILS ABSOLUTE AUTO 0.11 K/mm3 (0.00-0.23); BASOPHILS PERCENT AUTO 1 % (0-2); EOSINOPHILS ABSOLUTE AUTO 0.48 K/mm3 (0.00-0.68); EOSINOPHILS PERCENT AUTO 5 % (0-6); Hematocrit 26.9 % (37.0-53.0); Hemoglobin 9.2 g/dL (13.5-17.5); IMMATURE GRAN ABSOLUTE AUTO 0.04 K/mm3 (0.00-0.10); IMMATURE GRAN PERCENT AUTO 0 % (0-1); LYMPHOCYTES ABSOLUTE AUTO 1.15 K/mm3 (0.84-5.20); LYMPHOCYTES PERCENT AUTO 12 % (21-46); MONOCYTES PERCENT AUTO 15 % (4-13); Mean Corpuscular HGB 37.1 pg (26.0-34.0); Mean Corpuscular HGB Conc 34.2 g/dL (31.5-36.5); Mean Corpuscular Volume 109 fL (80-100); Mean Platelet Volume 9.7 fL (9.1-12.4); NEUTROPHILS ABSOLUTE AUTO 6.31 K/mm3 (1.96-9.15); NEUTROPHILS PERCENT AUTO 66 % (41-73); Platelet Count 113 K/mm3 (150-400); RDW Coefficient Variation 14.3 % (11.7-14.2); RDW Standard Deviation 54.3 fL (35.1-46.3); Red Blood Cell Count 2.48 M/mm3 (4.30-5.90); White Blood Cell Count 9.49 K/mm3 (4.00-11.30)
[2020-09-06 03:28] LABS: International Normalized Ratio 1.6; Prothrombin Time Results 16.7 Sec (9.7-11.5)
[2020-09-06 03:32] LABS: Alanine Aminotransfer (ALT/SGP 32 U/L (12-78); Albumin, Blood 2.4 g/dL (3.4-5.0); Albumin/Globulin Ratio 0.8 (0.8-1.8); Alk Phos 45 U/L (50-136); Anion Gap 6 mmol/L (6-16); Aspartate Aminotrans (AST/SGOT 56 U/L (12-37); Bilirubin, Total 5.9 mg/dL (0.1-1.0); Blood Urea Nitrogen 9 mg/dL (8-24); Bun/Creatinine Ratio 13.8 (12.0-20.0); CO2, Blood 24 mmol/L (21-32); Calcium, Blood 7.5 mg/dL (8.5-10.1); Chloride, Blood 111 mmol/L (98-108); Creatinine, Blood 0.65 mg/dL (0.60-1.20); Globulin, Blood 2.9 g/dL (2.2-4.0); Glomerular Filtration Rate >60 (60-); Glucose, Blood 145 mg/dL (70-99); Magnesium, Blood 1.7 mg/dL (1.6-2.4); Potassium, Blood 3.5 mmol/L (3.5-5.5); Sodium, Blood 141 mmol/L (136-145); Total Protein, Blood 5.3 g/dL (6.4-8.2)
--- NOTE | 2020-09-06 05:12 | NUR ---
SHIFT SUMMARY PT RESTED WELL THROUGH NIGHT. MENTATION IS CLEARING UP. PT ASKS "AM I GOING TO BE OKAY?", AND COMMUNICATES BETTER. ABLE TO LET ME KNOW IF SOMETHING HURTS OR IS UNCOMFORTABLE. SATS >90% ON ROOM AIR. TELE NSR. BP ELEVATED - SEE EMAR FOR TREATMENT. RESTRAINTS IN PLACE - NO SIGNS OF SKIN BREAKDOWN. BED BATH DONE, SRIDEVI CARE PERFORMED. CATH DRAINING TO GRAVITY. Q2 TURNS. NO C/O PAIN. VSS. CALL LIGHT WITHIN REACH, BED IN LOWEST POSITION. WILL CONTINUE TO MONITOR.
--- NOTE | 2020-09-06 07:45 | NUR ---
ASSUMED CARE BEDSIDE REPORT RECIEVED. PT IS LAYING IN BED. PT IS AROUSABLE TO VERBAL STIMULI. PT IS ABLE TO ANSWER SOME SIMPLE QUESTIONS. PT REMAINS CONFUSED AT TIMES AND IMPULSIVE. SBW RESTRAINTS AND GENARO VEST REMAIN IN PLACE. PROTONIX INFUSING AT 10 ML/HR, SANDOSTATIN AT 25 ML/HR, AND 1/2 NS INFUSING AT 125 ML/HR. LENTZ IN PLACE WITH ORANGE OUTPUT NOTED. RECTAL TUBE IN PLACE WITH LIQUID BLACK OUTPUT NOTED. WILL CONTINUE TO MONITOR.
--- NOTE | 2020-09-06 17:07 | NUR ---
SHIFT SUMMARY PT DOING WELL THIS AFTERNOON. PT IS MORE AWAKE AND ORIENTED. PT IS FOLLOWING DIRECTIONS APPROPRIATELY AT THIS TIME. PT REMAINS IMPULSIVE. GENARO VEST REMAINS IN PLACE. PT TOLERATING PO ICE CHIPS WELL. SPEECH IS MORE CLEAR. VITAL SIGNS STABLE. PT ON ROOM AIR. PROTONIX INFUSING AT 10 ML/HR, SANDOSTATIN AT 25 ML/HR, AND 1/2 NS AT 125 ML/HR. LENTZ REMAINS IN PLACE WITH GOOD AMOUNT OF ORANGE URINE OUTPUT THIS SHIFT. RECTAL TUBE REMAINS IN PLACE WITH LIQUID BLACK OUTPUT NOTED. PT MOTHER AT BEDSIDE AT THIS TIME. WILL CONTINUE TO MONITOR AND REPORT OFF TO ONCOMING RN.
[2020-09-07 04:10] LABS: BASOPHILS ABSOLUTE AUTO 0.07 K/mm3 (0.00-0.23); BASOPHILS PERCENT AUTO 1 % (0-2); EOSINOPHILS ABSOLUTE AUTO 0.45 K/mm3 (0.00-0.68); EOSINOPHILS PERCENT AUTO 6 % (0-6); Hematocrit 25.2 % (37.0-53.0); Hemoglobin 8.4 g/dL (13.5-17.5); IMMATURE GRAN ABSOLUTE AUTO 0.05 K/mm3 (0.00-0.10); IMMATURE GRAN PERCENT AUTO 1 % (0-1); LYMPHOCYTES ABSOLUTE AUTO 0.77 K/mm3 (0.84-5.20); LYMPHOCYTES PERCENT AUTO 10 % (21-46); MONOCYTES ABSOLUTE AUTO 1.45 K/mm3 (0.16-1.47); MONOCYTES PERCENT AUTO 19 % (4-13); Mean Corpuscular HGB 36.4 pg (26.0-34.0); Mean Corpuscular HGB Conc 33.3 g/dL (31.5-36.5); Mean Corpuscular Volume 109 fL (80-100); Mean Platelet Volume 9.5 fL (9.1-12.4); NEUTROPHILS ABSOLUTE AUTO 5.02 K/mm3 (1.96-9.15); NEUTROPHILS PERCENT AUTO 64 % (41-73); Platelet Count 103 K/mm3 (150-400); RDW Coefficient Variation 14.6 % (11.7-14.2); RDW Standard Deviation 56.7 fL (35.1-46.3); Red Blood Cell Count 2.31 M/mm3 (4.30-5.90); White Blood Cell Count 7.81 K/mm3 (4.00-11.30)
[2020-09-07 04:31] LABS: Alanine Aminotransfer (ALT/SGP 26 U/L (12-78); Albumin, Blood 2.1 g/dL (3.4-5.0); Albumin/Globulin Ratio 0.8 (0.8-1.8); Alk Phos 49 U/L (50-136); Anion Gap 7 mmol/L (6-16); Aspartate Aminotrans (AST/SGOT 41 U/L (12-37); Blood Urea Nitrogen 5 mg/dL (8-24); Bun/Creatinine Ratio 8.1 (12.0-20.0); CO2, Blood 24 mmol/L (21-32); Calcium, Blood 7.5 mg/dL (8.5-10.1); Chloride, Blood 111 mmol/L (98-108); Creatinine, Blood 0.62 mg/dL (0.60-1.20); Globulin, Blood 2.8 g/dL (2.2-4.0); Glomerular Filtration Rate >60 (60-); Glucose, Blood 200 mg/dL (70-99); Potassium, Blood 3.2 mmol/L (3.5-5.5); Sodium, Blood 142 mmol/L (136-145); Total Protein, Blood 4.9 g/dL (6.4-8.2)
--- NOTE | 2020-09-07 05:24 | NUR ---
SHIFT SUMMARY PT NOT RESTED FOR MOST OF EVENING. PT BECAME MORE AGITATED AND ANTSY. RN DID CIWA SCORES NOW THAT MENTATION HAS CLEARED UP FROM HEPATIC ENCEPHALOPATHY. CIWA 9, 9, 9 - ATIVAN X1 - PT RESTED AFTER ONE DOSE. NSR - NO CHEST PAIN. BP SLIGHTLY ELEVATED. SATS >90% ROOM AIR WHEN AWAKE, BUT DOES DESAT WHEN SLEEPING. PLACED ON 2LNC AT HS. PT RECEIVED PO LACTULOSE X1 - RECTAL TUBE STILL IN PLACE. LENTZ IN PLACE 1300ML OUT. GENARO VEST ON - STILL MEETS CRITERIA FOR USE. PT DOES NOT C/O PAIN. VSS. CALL LIGHT WITHIN REACH, BED IN LOWEST POSITION. WILL CONTINUE TO MONITOR.
--- NOTE | 2020-09-07 14:48 | NUR ---
History, Chart, Medications and Allergies reviewed before start of procedure.Patient confirms NPO status and agrees with scheduled surgery. Lungs clear T/O to Auscultation.
--- NOTE | 2020-09-07 16:22 | NUR ---
09/07/20 1622 Raymundo Valle PATIENT DETERMINED TO BE ASA APPROPRIATE FOR PROPOFOL SEDATION PRIOR TO START OF PROCEDURE BY DR. Olga Mcmillan Placed3-LEAD EKG REVIEWED WITH PHYSICIAN PRIOR TO START OF PROCEDURE.History, Chart, Medications and Allergies reviewed before start of procedure.MONITOR INTACT WITH CONTINUOUS PULSE OXIMETRY AND INTERMITTENT BP.O2 VIA N/C INTACT THROUGHOUT SEDATION/PROCEDURE.
--- NOTE | 2020-09-07 17:52 | NUR ---
SHIFT NOTE THIS AM PT'S RECTAL TUBE WAS REMOVED AFTER REPOSITIONING WAS NOT SUCCESSFUL AT STOPPING LEAKING OF STOOL. URINE CATH REMAINS IN PLACE AND DRAINING TO GRAVITY. VEST RESTRAINT WAS REMOVED AT 1600 TODAY. PT ALERT, ANSWERS MOST QUESTIONS APPROPRIATELY, HE CAN EXPRESS HIS NEEDS, HE'S INTERACTING WITH S/O AT BEDSIDE WELL. VSS. PT HAS EGD THIS EVENING WITHOUT INTERVENTION, PT NOW ON FUL LIQUID DIET AND IS EATING IN BED AT THIS TIME
--- NOTE | 2020-09-07 19:20 | NUR ---
ASSUMED CARE PT A&O X3-4; MAKES NEEDS KNOWN; VSS; DENIES CHEST PAIN; O2 SATS >93 ON RA; LENTZ IN PLACE; PT WATCHING TV; CALL LIGHT IN REACH; BED IN LOWEST POSITION.
--- NOTE | 2020-09-08 05:57 | NUR ---
SHIFT SUMMARY PT A&O X 3; MAKES NEEDS KNOWN; DENIES CHEST PAIN; VSS; O2 SATS >93 ON RA; LENTZ PATENT & DRAINING CRANBERRY URINE; PO FLUIDS ENCOURAGED; PT C/O NOT BEING ABLE TO SLEEP ON AND OFF T/O SHIFT; SLEEP AIDS & COMFORT MEASURES OFFERED OFTEN, SUCH SLEEP MASK, EAR PLUGS, WARM BLANKET, LIGHTS OFF, TV OFF, PT REFUSED MANY TIMES; ASSISTED PT W/ PHONE CALL TO S/O; SLEEP MASK & EARPLUGS BROUGHT TO PT; PT CURRENTLY SLEEPING W/ MASK ON; CALL LIGHT IN REACH; BED IN LOWEST POSITION; WILL CONTINUE TO MONITOR CLOSELY UNTIL HAND OFF TO DAY SHIFT RN.
--- NOTE | 2020-09-08 09:00 | NUR ---
ASSUMED CARE: REPORT RECEIVED FROM MILLER Abdullahi RN. ASSUMED CARE OF THIS PT AT APPROX 0700. ON ASSESSMENT, THE PT IS AWAKE, A&O, PLEASANT & COOPERATIVE. HE IS ABLE TO STAND/ AMBULATE TO THE RECLINER W/ MIN ASSIST FROM TAMIKO CANAS. CONVERSATION IS SOMEWHAT SCATTERED & THE PT JUMPS TO DIFFERENT TOPICS QUICKLY. OVERALL CONVERSATION IS APPROPRIATE & RELEVANT. LS CLEAR, PT ON RA W/ O2 SATS > 95%. PT IS MEDICAL STATUS & NO HEART MONITOR IN USE. PT HAS NO GI COMPLAINTS & STS HAVING A HEALTHY APPETITE, TOLERATING PO INTAKE WELL. LENTZ PATENT/ DRAINING DARK YELLOW URINE. PT REQUESTS THAT LENTZ BE REMOVED TODAY, WILL VERIFY W/ PROVIDER. SKIN CONDITION OVERALL INTACT - SEE ASSESSMENT. WILL CONTINUE TO MONITOR & UPDATE NEEDED.
--- NOTE | 2020-09-08 14:10 | NUR ---
DR TOBIAS: PROVIDER AT BEDSIDE TO NOEL PT. HE WOULD LIKE THE LENTZ TO BE REMOVED & FOR THE PROTONIX DRIP TO BE D/C'd. PO PROTONIX ORDERED. H&H ORDERED, PLEASE CALL PROVIDER W/ RESULTS. HE WILL ADVANCE DIET BASED ON THESE RESULTS IF APPROPRIATE.
[2020-09-08 15:40] LABS: Hematocrit 25.3 % (37.0-53.0); Hemoglobin 8.3 g/dL (13.5-17.5)
--- NOTE | 2020-09-08 15:46 | NUR ---
LENTZ REMOVAL: LENTZ REMOVED BY THIS RN AT APPROX 1510, BALLOON DEFLATED FULLY & CATHETER REMOVED EASILY W/ NO RESISTANCE MET. BLEEDING IMMEDIATELY NOTED SOON LENTZ CATHETER WITHDRAWN FROM URETHRA. BLEEDING IS BRIGHT RIGHT & SPURTING OUT. PRESSURE HELD & BLEEDING CONTINUES. NINFA Reinoso RN & LAURA Alvarez RN AT BEDSIDE TO ASSIST. CALL TO DR GRAVES BY NINFA Reinoso RN. ORDERS PLACED FOR VITAMIN K INFUSION. PROVIDER STS OKAY TO PLACE NEW LENTZ FOR TAMPONADE IF BLEEDING DOES NOT SLOW OR PT IS UNABLE TO VOID R/T CLOTTING. BLEEDING HAS SLOWED SUBSTANTIALLY & BLOOD IN URINAL IS NOTED TO BE CLOTTING. NEW URINAL PLACED & PT IS ABLE TO VOID 200 ML DARK YELLOW URINE W/ NO FURTHER BLEEDING NOTED FROM URETHRA. WILL CONTINUE TO MONITOR.
[2020-09-08 15:52] LABS: International Normalized Ratio 1.58; Prothrombin Time Results 16.5 Sec (9.7-11.5)
--- NOTE | 2020-09-08 16:36 | NUR ---
TRANSFER TO MEDICAL FLOOR: REPORT HAS BEEN GIVEN TO MARCIE Argueta RN TO ASSUME CARE. NO FURTHER BLEEDING HAS BEEN NOTED SINCE TIME OF LENTZ REMOVAL & PT DENIES PAIN. H&H REPORTED TO DR TOBIAS & PROVIDER WILL PLACE DIET ORDERS FOR THIS PT. CHART, MEDS & ALL BELONGINGS HAVE BEEN TAKEN TO ROOM 359 W/ PT. HIS IS AT BEDSIDE DURING TRANSFER. PT TAKEN UP VIA WC BY TAMIKO CANAS AT APPROX 1625.
--- NOTE | 2020-09-08 19:41 | NUR ---
PATIENT FOUND DOWN: PATIENT FOUND ON FLOOR, IN SITTING POSITION, IN FRONT OF RECLINER CHAIR. NEURO CHECKS WITHIN NORMAL LIMITS; NO C/O PAIN. DOCTOR NOTIFIED--NO ADDITIONAL ORDERS; CHARGE NURSE NOTIFIED; IRIS COMPLETED. PATIENT ASSISTED TO BATHROOM & BACK TO BED; SLOW, WEAK GAIT. YELLOW GOWN PLACED ON PATIENT. BED ALARM ON.
--- NOTE | 2020-09-08 19:45 | NUR ---
SHIFT SUMMARY: PATIENT XFR FROM ICU-10 THIS SHIFT. PT ALERT; SLOW TO RESPOND; CALM AND COOPERATIVE WITH CARE. NO C/O PAIN SINCE ARRIVAL ON MEDICAL. UNWITTNESSED FALL THIS SHIFT--SEE NOTE. DIET ADVANCED TO REG/ADA THIS SHIFT; PT TOLERATING WELL. SANDOSTATIN IV CONTINUING. REPORT GIVEN TO ONCOMING RN.
--- NOTE | 2020-09-09 04:47 | NUR ---
PREPAROLE COUNSELING AIDE SUMMARY PT A&OX4, ABLE TO MAKE NEEDS KNOWN. CONFUSED AND FORGETFUL AT TIMES. PT IMPULSIVE, HAD 2 EPISODES OF BED EXITING W/O ASSISTANCE FROM STAFF EARLY IN THE SHIFT. PT EASILY REDIRECTABLE, SLOW TO RESPOND. PT IS A HIGH FALL RISK, HX FALL 09/08/20. PT CONT TO HAVE WEAKNESS TO GARRETT UPPER AND LOWER EXT. NO C/O PAIN OR ANY DISCOMFORT THIS SHIFT. DENIES CP, SOB, OR N&V. PT CALM AND RESTED IN BED AT THIS TIME. PT HAS BEEN USING CALL LIGHT APPROPRIATELY FOR ASSISTANCE. BED AT LOWEST POSITION, BED ALARM ON. SANDOSTATIN INFUSING AT THIS TIME ORDERED. CALL LIGHT WITHIN REACH.
[2020-09-09 05:21] LABS: BASOPHILS ABSOLUTE AUTO 0.07 K/mm3 (0.00-0.23); BASOPHILS PERCENT AUTO 1 % (0-2); EOSINOPHILS ABSOLUTE AUTO 0.41 K/mm3 (0.00-0.68); EOSINOPHILS PERCENT AUTO 9 % (0-6); Hematocrit 24.7 % (37.0-53.0); Hemoglobin 8.2 g/dL (13.5-17.5); IMMATURE GRAN ABSOLUTE AUTO 0.03 K/mm3 (0.00-0.10); IMMATURE GRAN PERCENT AUTO 1 % (0-1); LYMPHOCYTES ABSOLUTE AUTO 0.75 K/mm3 (0.84-5.20); LYMPHOCYTES PERCENT AUTO 16 % (21-46); MONOCYTES ABSOLUTE AUTO 0.76 K/mm3 (0.16-1.47); MONOCYTES PERCENT AUTO 16 % (4-13); Mean Corpuscular HGB 36.4 pg (26.0-34.0); Mean Corpuscular HGB Conc 33.2 g/dL (31.5-36.5); Mean Corpuscular Volume 110 fL (80-100); Mean Platelet Volume 9.6 fL (9.1-12.4); NEUTROPHILS ABSOLUTE AUTO 2.82 K/mm3 (1.96-9.15); NEUTROPHILS PERCENT AUTO 58 % (41-73); Platelet Count 115 K/mm3 (150-400); RDW Coefficient Variation 14.2 % (11.7-14.2); RDW Standard Deviation 56.7 fL (35.1-46.3); Red Blood Cell Count 2.25 M/mm3 (4.30-5.90); White Blood Cell Count 4.84 K/mm3 (4.00-11.30)
[2020-09-09 05:48] LABS: Anion Gap 6 mmol/L (6-16); Blood Urea Nitrogen 7 mg/dL (8-24); Bun/Creatinine Ratio 11.4 (12.0-20.0); CO2, Blood 27 mmol/L (21-32); Calcium, Blood 7.7 mg/dL (8.5-10.1); Chloride, Blood 108 mmol/L (98-108); Creatinine, Blood 0.61 mg/dL (0.60-1.20); Glomerular Filtration Rate >60 (60-); Glucose, Blood 221 mg/dL (70-99); Potassium, Blood 3.4 mmol/L (3.5-5.5); Sodium, Blood 141 mmol/L (136-145)
--- NOTE | 2020-09-09 18:35 | NUR ---
SHIFT SUMMARY: NO ACUTE CHANGES TO REPORT THIS SHIFT. MANAGER CONSTRUCTION&O; FORGETFUL; SLOW TO RESPOND; CALM AND COOEPRATIVE WITH CARE. PT OOB & OO CHAIR ON SEVERAL OCCASIONS; ALARMS ON FOR SAFETY. ELEVATED AMMONIA; LACTULOSE RESTARTED THIS SHIFT; NO BM THIS SHIFT. FAMILY IN ROOM FROM [id number]. PT AMBULATED IN HOYT THIS SHIFT X2; SLOW, WEAK GAIT. AWAITING PT EVAL. TM.
--- NOTE | 2020-09-10 04:55 | NUR ---
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 FORGETFUL AT TIMES, IMPULSIVE. HAD EPISODES OF BED EXITING W/O ASSISTANCE FROM STAFF. PT HIGH FALL RISK D/T WEAKNESS AND UNSTEADY GAIT. NO C/O PAIN OR ANY DISCOMFORT, NO C/O CP, SOB OR N&V. PT CALM AND RESTED IN BED AT THIS TIME. BED AT LOWEST POSITION, BED ALARM ON, AND CALL LIGHT WITHIN REACH.
--- NOTE | 2020-09-10 17:44 | NUR ---
SHIFT SUMMARY PT UP IN CHAIR MOST OF THE DAY. S.O. AT BEDSIDE THIS AFTERNOON. PROVIDED EDUCATON ON CURRENT STATE OF HEALTH AT THIS TIME. 1 PERSON ASSIST USING FWW TO BATHROOM AND BACK TO CHAIR. WALKED IN HALLWAY WITH 1 PERSON ASSIST AROUND UNIT USING FWW. DOES FORGET CONVERSATION FROM THIS MORNING BUT ACCORDING TO S.O. PTS MENTATION IMPROVED FROM YESTERDAY.
--- NOTE | 2020-09-11 04:30 | NUR ---
SHIFT SUMMARY: VSS. AFEB. AAOX2. UNABLE TO GIVE DETAILS ABOUT REASON FOR HOSPITALIZATION. STATED THE YEAR WAS 2011. PLEASANT, REDIRECTIBLE. +3 PITTING EDEMA FROM ELBOWS TO HANDS BILATERALLY. LS DIM. NO COUGHING. ABDOMEN SOFT, NON-TENDER. DENIES N/V. NO BM TONIGHT. DENIES PAIN. CALLING APPROPRIATELY TONIGHT, NO ATTEMPTS TO SELF T/F OUT OF BED. BED ALARM ON. NO ACUTE CHANGES AT THIS TIME. WILL CONT TO MONITOR.
[2020-09-11 06:08] LABS: Alanine Aminotransfer (ALT/SGP 30 U/L (12-78); Albumin, Blood 2.2 g/dL (3.4-5.0); Albumin/Globulin Ratio 0.8 (0.8-1.8); Alk Phos 47 U/L (50-136); Anion Gap 6 mmol/L (6-16); Aspartate Aminotrans (AST/SGOT 48 U/L (12-37); Bilirubin, Total 3.2 mg/dL (0.1-1.0); Blood Urea Nitrogen 8 mg/dL (8-24); Bun/Creatinine Ratio 12.8 (12.0-20.0); CO2, Blood 27 mmol/L (21-32); Calcium, Blood 7.7 mg/dL (8.5-10.1); Chloride, Blood 110 mmol/L (98-108); Creatinine, Blood 0.63 mg/dL (0.60-1.20); Globulin, Blood 2.9 g/dL (2.2-4.0); Glomerular Filtration Rate >60 (60-); Glucose, Blood 137 mg/dL (70-99); Magnesium, Blood 1.6 mg/dL (1.6-2.4); Phosphorus, Blood 3.3 mg/dL (2.5-4.9); Potassium, Blood 3.6 mmol/L (3.5-5.5); Sodium, Blood 143 mmol/L (136-145); Total Protein, Blood 5.1 g/dL (6.4-8.2)
--- NOTE | 2020-09-11 18:00 | NUR ---
SHIFT SUMMARY PT 1 PERSON ASSIST TO BATHROOM AND BACK TO BED USING FWW. HAS AMBULATED IN HALLWAY WITH STAFF AND S.O. UP TO 3 TIMES TODAY. REPORTS HAVING 2 BMS TODAY. LACTULOSE HAS BEEN GIVEN [address] TOBIAS IN TO SEE PT TODAY. PT ENCOURAGED TO LEAVE STOOL IN TOILET FOR STAFF TO OBSERVE COLOR. APPEARS MORE TIRED TODAY OVER YESTERDAY AND REPORTED NOT SLEEPING WELL LAST NIGHT. PLANS FOR DISCHARGE TOMORROW AFTER WALKER OBTAINED.
--- NOTE | 2020-09-12 05:25 | NUR ---
SHIFT SUMMARY NO ACUTE CHANGES TO REPORT THIS SHIFT PT HAS RESTED MOST OF THE NIGHT. HE DENIES NEEDS. A/OX4 BUT SLOW TO RESPOND. AFFECT IS FLAT AND WITHDRAWN, BUT PT IS COOPERATIVE WITH CARE. PT HAS BEEN AMBULATING TO AND FROM THE BATHROOM WITH 1 PA, AND SEEMS MOTIVATED TO GET STRONGER AND REPORTS THAT HE AMBULATED IN THE HALLWAY DURING THE DAY X2. ASSESSMENT UNCHANGED. PLAN IS FOR DC TODAY WITH A PRESCIPTION FOR A WALKER. BED IN LOWEST POSITION, CALL LIGHT WITHIN REACH.
[2020-09-12] MEDS ORDERED: LACT10SY PO (11:06)
[2020-09-12] MEDS ORDERED: PANT40 PO (11:07)
[2020-09-12] MEDS ORDERED: MELA3 PO (11:07)
[2020-09-12] MEDS ORDERED: Inderal40 MG PO (11:12)
[2020-09-12] MEDS ORDERED: SPIR25 PO (11:12)
--- NOTE | 2020-09-12 15:29 | NUR ---
PT DISCHARGED FROM THE UNIT. IV REMOVED. DISCHARGE INSTRUCTINS REVIEWED. PT LEFT WITH FAMILY VIA WHEELCHAIR. MEDICATIONS FAXED TO PHARMACY.
== END 2020-09-12 15:19 | disposition home or self-care (01) | DRG 441 ==
LOC: MEDS → ER 21:39 → ICUW 23:37 → ER 09-02 00:01 → ICUW 09-02 00:39 → ER 09-02 23:37 → ICUW 09-03 16:05 → PCU 09-03 17:58 → ICUW 09-03 17:58 → PCU 09-03 18:04 → ICUW 09-07 17:58 → MEDS 09-08 16:29 → ICUW 09-08 16:29 → MEDS 09-12 15:19
PROVIDERS: Emergency Medicine; Internal Medicine; Internal Medicine Gastroenterology; ADMIT Internal Medicine
PROC: 0DJ08ZZ Inspection of Upper Intestinal Tract, Via Natural or Artificial Opening Endoscopic (ICD-10-PCS; principal; 2020-09-01)
DX: K76.6 Portal hypertension (principal); K72.00 Acute and subacute hepatic failure without coma; F10.239 Alcohol dependence with withdrawal, unspecified; I85.10 Secondary esophageal varices without bleeding; I82.612 Acute embolism and thrombosis of superficial veins of left upper extremity; D69.6 Thrombocytopenia, unspecified; I10 Essential (primary) hypertension; G40.909 Epilepsy, unspecified, not intractable, without status epilepticus; Z87.891 Personal history of nicotine dependence; K21.00 Gastro-esophageal reflux disease with esophagitis, without bleeding; K70.30 Alcoholic cirrhosis of liver without ascites; Z20.822 Contact with and (suspected) exposure to COVID-19; R33.9 Retention of urine, unspecified; I86.4 Gastric varices; R73.9 Hyperglycemia, unspecified; Z78.1 Physical restraint status
CPT/HCPCS: 0241U; 36415; 51703; 71045; 76705; 80048; 80053; 80076; 81001; 82105; 82140; 82947; 83036; 83690; 83735; 84100; 85014; 85018; 85025; 85027; 85610; 86850; 86900; 86901; 87040; 87086; 93005; 93010; 93971; 96365; 96368; 96375; 96376; 97110; 97116; 97162; 97530; 99285-25; A9270; C1751; C9113; J0171; J0360; J0696; J0744; J1430; J2060; J2250; J2354; J2405; J2704; J3411; J3430; J3475; J3480; J7030; J7040; J7042; J7050; J7060; J7120

== ENCOUNTER 2020-10-04 14:03 | Emergency (ER) | payer OTHER ==
[~2020-10-04] VITALS: Ht 182.9 cm; Wt 88.5 kg
[~2020-10-04 14:03] MED LIST changes: +Inderal40 MG PO; +LACT10SY PO; +MELA3 PO; +PANT40 PO; +SPIR25 PO
[2020-10-04] MEDS ORDERED: FOLI1 PO (15:19)
[2020-10-04] MEDS ORDERED: B-1100 M1 PO (15:19)
[2020-10-04 16:15] LABS: BASOPHILS ABSOLUTE AUTO 0.09 K/mm3 (0.00-0.23); BASOPHILS PERCENT AUTO 2 % (0-2); EOSINOPHILS ABSOLUTE AUTO 0.32 K/mm3 (0.00-0.68); EOSINOPHILS PERCENT AUTO 7 % (0-6); Hematocrit 36.1 % (37.0-53.0); Hemoglobin 11.9 g/dL (13.5-17.5); IMMATURE GRAN ABSOLUTE AUTO 0.01 K/mm3 (0.00-0.10); IMMATURE GRAN PERCENT AUTO 0 % (0-1); LYMPHOCYTES ABSOLUTE AUTO 1.13 K/mm3 (0.84-5.20); LYMPHOCYTES PERCENT AUTO 26 % (21-46); MONOCYTES ABSOLUTE AUTO 0.62 K/mm3 (0.16-1.47); MONOCYTES PERCENT AUTO 14 % (4-13); Mean Corpuscular HGB 34.3 pg (26.0-34.0); Mean Corpuscular Volume 104 fL (80-100); Mean Platelet Volume 10.8 fL (9.1-12.4); NEUTROPHILS ABSOLUTE AUTO 2.26 K/mm3 (1.96-9.15); NEUTROPHILS PERCENT AUTO 51 % (41-73); Platelet Count 111 K/mm3 (150-400); RDW Coefficient Variation 12.9 % (11.7-14.2); RDW Standard Deviation 49.7 fL (35.1-46.3); Red Blood Cell Count 3.47 M/mm3 (4.30-5.90); White Blood Cell Count 4.43 K/mm3 (4.00-11.30)
[2020-10-04 16:37] LABS: Alanine Aminotransfer (ALT/SGP 43 U/L (12-78); Albumin, Blood 2.7 g/dL (3.4-5.0); Albumin/Globulin Ratio 0.7 (0.8-1.8); Alk Phos 88 U/L (50-136); Anion Gap 3 mmol/L (6-16); Aspartate Aminotrans (AST/SGOT 40 U/L (12-37); Bilirubin, Total 2.1 mg/dL (0.1-1.0); Blood Urea Nitrogen 11 mg/dL (8-24); Bun/Creatinine Ratio 15.1 (12.0-20.0); CO2, Blood 28 mmol/L (21-32); Calcium, Blood 8.8 mg/dL (8.5-10.1); Chloride, Blood 106 mmol/L (98-108); Creatinine, Blood 0.73 mg/dL (0.60-1.20); Globulin, Blood 3.7 g/dL (2.2-4.0); Glomerular Filtration Rate >60 (60-); Glucose, Blood 275 mg/dL (70-99); Magnesium, Blood 1.8 mg/dL (1.6-2.4); Phosphorus, Blood 3.4 mg/dL (2.5-4.9); Sodium, Blood 137 mmol/L (136-145); Total Protein, Blood 6.4 g/dL (6.4-8.2)
[2020-10-04] MEDS ORDERED: RIFA550T2 PO (16:57)
== END 2020-10-04 17:43 | disposition home or self-care (01) ==
LOC: ER 14:03
PROVIDERS: Physician Assistant
DX: E87.5 Hyperkalemia (principal); K72.90 Hepatic failure, unspecified without coma; I10 Essential (primary) hypertension; E78.00 Pure hypercholesterolemia, unspecified; Z79.899 Other long term (current) drug therapy; Z88.0 Allergy status to penicillin; Z88.1 Allergy status to other antibiotic agents; Z88.5 Allergy status to narcotic agent; Z88.8 Allergy status to other drugs, medicaments and biological substances; Z87.891 Personal history of nicotine dependence
CPT/HCPCS: 36415; 80048; 80053; 82140; 82607; 82728; 82746; 83540; 83550; 83690; 83735; 84100; 85025; 85610; 86803; 87340; 99283-25

== ENCOUNTER → 2020-10-05 | Outpatient (CLI) | payer OTHER ==
[~2020-10-05] MED LIST changes: +B-1100 M1 PO; +FOLI1 PO; +NOVOLOG MI100 UNIT/2; +ONDA4ODT MM; +Prozac20 MG PO; +RIFA550T2 PO
[2020-10-05 17:20] LABS: Anion Gap 4 mmol/L (6-16); Blood Urea Nitrogen 10 mg/dL (8-24); Bun/Creatinine Ratio 9.7 (12.0-20.0); CO2, Blood 26 mmol/L (21-32); Calcium, Blood 8.6 mg/dL (8.5-10.1); Chloride, Blood 105 mmol/L (98-108); Creatinine, Blood 1.03 mg/dL (0.60-1.20); Glomerular Filtration Rate >60 (60-); Glucose, Blood 263 mg/dL (70-99); Potassium, Blood 4.9 mmol/L (3.5-5.5); Sodium, Blood 135 mmol/L (136-145)
== END ==
LOC: LAB SHORT 16:53 → PLD 16:53
PROVIDERS: Physician Assistant
DX: E87.5 Hyperkalemia (principal)
CPT/HCPCS: 80048

== ENCOUNTER 2020-10-27 19:10 | Emergency (ER) | payer OTHER ==
[~2020-10-27] VITALS: Ht 182.9 cm; Wt 88.5 kg
[~2020-10-27 19:10] MED LIST changes: -NOVOLOG MI100 UNIT/2; -ONDA4ODT MM; -Prozac20 MG PO
[2020-10-27 20:13] LABS: Alanine Aminotransfer (ALT/SGP 56 U/L (12-78); Albumin, Blood 2.8 g/dL (3.4-5.0); Albumin/Globulin Ratio 0.7 (0.8-1.8); Alk Phos 101 U/L (50-136); Anion Gap 7 mmol/L (6-16); Aspartate Aminotrans (AST/SGOT 64 U/L (12-37); Bilirubin, Total 2.2 mg/dL (0.1-1.0); Blood Urea Nitrogen 8 mg/dL (8-24); Bun/Creatinine Ratio 10.3 (12.0-20.0); CO2, Blood 28 mmol/L (21-32); Chloride, Blood 107 mmol/L (98-108); Creatinine, Blood 0.78 mg/dL (0.60-1.20); Globulin, Blood 3.9 g/dL (2.2-4.0); Glomerular Filtration Rate >60 (60-); Glucose, Blood 231 mg/dL (70-99); Potassium, Blood 4.1 mmol/L (3.5-5.5); Sodium, Blood 142 mmol/L (136-145); Total Protein, Blood 6.7 g/dL (6.4-8.2)
[2020-10-27 20:34] LABS: BASOPHILS ABSOLUTE AUTO 0.09 K/mm3 (0.00-0.23); BASOPHILS PERCENT AUTO 2 % (0-2); EOSINOPHILS ABSOLUTE AUTO 0.21 K/mm3 (0.00-0.68); EOSINOPHILS PERCENT AUTO 5 % (0-6); Hematocrit 37.4 % (37.0-53.0); Hemoglobin 12.8 g/dL (13.5-17.5); IMMATURE GRAN ABSOLUTE AUTO 0.01 K/mm3 (0.00-0.10); IMMATURE GRAN PERCENT AUTO 0 % (0-1); LYMPHOCYTES ABSOLUTE AUTO 1.34 K/mm3 (0.84-5.20); LYMPHOCYTES PERCENT AUTO 30 % (21-46); MONOCYTES ABSOLUTE AUTO 0.64 K/mm3 (0.16-1.47); MONOCYTES PERCENT AUTO 14 % (4-13); Mean Corpuscular HGB 33.9 pg (26.0-34.0); Mean Corpuscular HGB Conc 34.2 g/dL (31.5-36.5); Mean Corpuscular Volume 99 fL (80-100); Mean Platelet Volume 10.5 fL (9.1-12.4); NEUTROPHILS ABSOLUTE AUTO 2.17 K/mm3 (1.96-9.15); NEUTROPHILS PERCENT AUTO 49 % (41-73); Platelet Count 106 K/mm3 (150-400); RDW Coefficient Variation 13.4 % (11.7-14.2); RDW Standard Deviation 48.8 fL (35.1-46.3); Red Blood Cell Count 3.78 M/mm3 (4.30-5.90); White Blood Cell Count 4.46 K/mm3 (4.00-11.30)
[2020-10-27 21:49] LABS: Amylase, Blood 132 U/L (25-115)
[2020-10-27 22:10] LABS: Source, Urine Clean Catch
[2020-10-27 22:12] LABS: Bilirubin, Urine Neg (Neg); Blood, Urine Neg (Neg); Glucose Qualitative, Urine 3+ (Neg); Ketones, Urine Neg (Neg); Leukocyte Esterase, Urine 1+ (Neg); Nitrite, Urine Neg (Neg); Protein, Urine 1+ (Neg); Urobilinogen, Urine 2+ (Normal)
[2020-10-27 22:19] LABS: Appearance, Urine Clear (Clear); Color, Urine Yellow (P-Yellow)
[2020-10-27 22:27] LABS: Bacteria Rare /hpf; Mucus Light (0-Heavy); Red Blood Cells, Urine Not Seen /hpf (0-2); Squamous Epithelial Cells Rare /hpf (Few); White Blood Cells, Urine 0-2 /hpf (0-5)
[2020-10-27] MEDS ORDERED: ONDA4ODT MM (23:33)
== END 2020-10-28 | disposition home or self-care (01) ==
LOC: ER 19:10
PROVIDERS: Emergency Medicine
DX: K59.00 Constipation, unspecified (principal); K74.60 Unspecified cirrhosis of liver; K52.9 Noninfective gastroenteritis and colitis, unspecified; E78.00 Pure hypercholesterolemia, unspecified; E11.9 Type 2 diabetes mellitus without complications; I10 Essential (primary) hypertension; Z87.891 Personal history of nicotine dependence; Z88.0 Allergy status to penicillin; Z79.899 Other long term (current) drug therapy
CPT/HCPCS: 36415; 74177; 80053; 81001; 82140; 82150; 83690; 85025; 93005; 93010; 96361; 96374-59; 96375; 96376; 99284-25; J2270; J2405; J7030; Q9967

== ENCOUNTER → 2020-11-20 | Outpatient (CLI) | payer OTHER ==
[~2020-11-20] MED LIST changes: +NOVOLOG MI100 UNIT/2; +ONDA4ODT MM; +Prozac20 MG PO
[2020-11-20 12:37] LABS: BASOPHILS ABSOLUTE AUTO 0.07 K/mm3 (0.00-0.23); BASOPHILS PERCENT AUTO 2 % (0-2); EOSINOPHILS ABSOLUTE AUTO 0.16 K/mm3 (0.00-0.68); EOSINOPHILS PERCENT AUTO 3 % (0-6); Hematocrit 39.2 % (37.0-53.0); Hemoglobin 13.9 g/dL (13.5-17.5); IMMATURE GRAN ABSOLUTE AUTO 0.02 K/mm3 (0.00-0.10); IMMATURE GRAN PERCENT AUTO 0 % (0-1); LYMPHOCYTES ABSOLUTE AUTO 0.97 K/mm3 (0.84-5.20); LYMPHOCYTES PERCENT AUTO 20 % (21-46); MONOCYTES ABSOLUTE AUTO 0.62 K/mm3 (0.16-1.47); MONOCYTES PERCENT AUTO 13 % (4-13); Mean Corpuscular HGB 34.1 pg (26.0-34.0); Mean Corpuscular HGB Conc 35.5 g/dL (31.5-36.5); Mean Corpuscular Volume 96 fL (80-100); NEUTROPHILS ABSOLUTE AUTO 2.94 K/mm3 (1.96-9.15); NEUTROPHILS PERCENT AUTO 62 % (41-73); RDW Coefficient Variation 14.5 % (11.7-14.2); RDW Standard Deviation 51.3 fL (35.1-46.3); Red Blood Cell Count 4.08 M/mm3 (4.30-5.90); White Blood Cell Count 4.78 K/mm3 (4.00-11.30)
[2020-11-20 12:48] LABS: Alanine Aminotransfer (ALT/SGP 42 U/L (12-78); Albumin/Globulin Ratio 0.8 (0.8-1.8); Alk Phos 63 U/L (40-126); Anion Gap 7 mmol/L (6-16); Aspartate Aminotrans (AST/SGOT 44 U/L (12-37); Bilirubin, Total 4.1 mg/dL (0.1-1.0); Blood Urea Nitrogen 11 mg/dL (8-24); Bun/Creatinine Ratio 12.4 (12.0-20.0); CO2, Blood 28 mmol/L (21-32); Calcium, Blood 9.3 mg/dL (8.5-10.1); Chloride, Blood 107 mmol/L (98-108); Creatinine, Blood 0.89 mg/dL (0.60-1.20); Globulin, Blood 3.8 g/dL (2.2-4.0); Glomerular Filtration Rate >60 (60-); Glucose, Blood 144 mg/dL (70-99); Mean Platelet Volume 10.7 fL (9.1-12.4); Platelet Count 100 K/mm3 (150-400); Potassium, Blood 4.2 mmol/L (3.5-5.5); Sodium, Blood 142 mmol/L (136-145); Total Protein, Blood 6.8 g/dL (6.4-8.2)
== END | disposition home or self-care (01) ==
LOC: LAB EV 12:23 → LAB SHORT 12:23
PROVIDERS: Physician Assistant Medical
DX: K70.30 Alcoholic cirrhosis of liver without ascites (principal); R19.7 Diarrhea, unspecified
CPT/HCPCS: 80053; 82140; 83690; 85025

== ENCOUNTER 2020-12-10 06:39 | Emergency (ER) | payer OTHER ==
[~2020-12-10] VITALS: Ht 180.3 cm; Wt 79.4 kg
[~2020-12-10 06:39] MED LIST changes: -NOVOLOG MI100 UNIT/2; -Prozac20 MG PO
[2020-12-10 07:13] LABS: BASOPHILS ABSOLUTE AUTO 0.08 K/mm3 (0.00-0.23); BASOPHILS PERCENT AUTO 2 % (0-2); EOSINOPHILS ABSOLUTE AUTO 0.18 K/mm3 (0.00-0.68); EOSINOPHILS PERCENT AUTO 5 % (0-6); Hematocrit 36.2 % (37.0-53.0); Hemoglobin 12.6 g/dL (13.5-17.5); IMMATURE GRAN ABSOLUTE AUTO 0.01 K/mm3 (0.00-0.10); IMMATURE GRAN PERCENT AUTO 0 % (0-1); LYMPHOCYTES PERCENT AUTO 18 % (21-46); MONOCYTES ABSOLUTE AUTO 0.51 K/mm3 (0.16-1.47); MONOCYTES PERCENT AUTO 13 % (4-13); Mean Corpuscular HGB 33.9 pg (26.0-34.0); Mean Corpuscular HGB Conc 34.8 g/dL (31.5-36.5); Mean Corpuscular Volume 97 fL (80-100); Mean Platelet Volume 10.5 fL (9.1-12.4); NEUTROPHILS ABSOLUTE AUTO 2.36 K/mm3 (1.96-9.15); NEUTROPHILS PERCENT AUTO 61 % (41-73); Platelet Count 109 K/mm3 (150-400); RDW Coefficient Variation 15.5 % (11.7-14.2); RDW Standard Deviation 55.6 fL (35.1-46.3); Red Blood Cell Count 3.72 M/mm3 (4.30-5.90); White Blood Cell Count 3.84 K/mm3 (4.00-11.30)
[2020-12-10] MEDS ORDERED: Prozac20 MG PO (07:14)
[2020-12-10] MEDS ORDERED: NOVOLOG MI100 UNIT/2 (07:15)
[2020-12-10 07:33] LABS: Alanine Aminotransfer (ALT/SGP 49 U/L (12-78); Albumin, Blood 2.6 g/dL (3.4-5.0); Albumin/Globulin Ratio 0.7 (0.8-1.8); Alk Phos 86 U/L (50-136); Anion Gap 5 mmol/L (6-16); Aspartate Aminotrans (AST/SGOT 49 U/L (12-37); Blood Urea Nitrogen 13 mg/dL (8-24); Bun/Creatinine Ratio 15.3 (12.0-20.0); CO2, Blood 24 mmol/L (21-32); Calcium, Blood 8.4 mg/dL (8.5-10.1); Chloride, Blood 113 mmol/L (98-108); Creatinine, Blood 0.85 mg/dL (0.60-1.20); Ethanol (Alcohol), Blood, Med <3 mg/dL; Globulin, Blood 3.5 g/dL (2.2-4.0); Glomerular Filtration Rate >60 (60-); Glucose, Blood 143 mg/dL (70-99); Potassium, Blood 4.6 mmol/L (3.5-5.5); Sodium, Blood 142 mmol/L (136-145); Total Protein, Blood 6.1 g/dL (6.4-8.2); Troponin I <0.015 ng/mL (0.000-0.040)
[2020-12-10 07:39] LABS: International Normalized Ratio 1.38; Prothrombin Time Results 14.6 Sec (9.7-11.5)
== END 2020-12-10 09:08 | disposition home or self-care (01) ==
LOC: ER 06:39
PROVIDERS: Emergency Medicine
DX: K72.90 Hepatic failure, unspecified without coma (principal); I10 Essential (primary) hypertension; E78.00 Pure hypercholesterolemia, unspecified; Z87.891 Personal history of nicotine dependence
CPT/HCPCS: 36415; 70450; 80053; 82140; 84484; 85025; 85610; 85730; 93005; 93010; 99285-25; G0480; J7030

== ENCOUNTER → 2020-12-20 | Outpatient (CLI) | payer OTHER ==
[~2020-12-20] MED LIST changes: +NOVOLOG MI100 UNIT/2; +Prozac20 MG PO
[2020-12-20 16:41] LABS: BASOPHILS ABSOLUTE AUTO 0.05 K/mm3 (0.00-0.23); BASOPHILS PERCENT AUTO 1 % (0-2); EOSINOPHILS ABSOLUTE AUTO 0.21 K/mm3 (0.00-0.68); EOSINOPHILS PERCENT AUTO 5 % (0-6); Hematocrit 36.8 % (37.0-53.0); Hemoglobin 12.7 g/dL (13.5-17.5); IMMATURE GRAN ABSOLUTE AUTO 0.01 K/mm3 (0.00-0.10); IMMATURE GRAN PERCENT AUTO 0 % (0-1); LYMPHOCYTES ABSOLUTE AUTO 1.06 K/mm3 (0.84-5.20); LYMPHOCYTES PERCENT AUTO 24 % (21-46); MONOCYTES ABSOLUTE AUTO 0.64 K/mm3 (0.16-1.47); MONOCYTES PERCENT AUTO 15 % (4-13); Mean Corpuscular HGB 34.5 pg (26.0-34.0); Mean Corpuscular HGB Conc 34.5 g/dL (31.5-36.5); Mean Corpuscular Volume 100 fL (80-100); NEUTROPHILS ABSOLUTE AUTO 2.39 K/mm3 (1.96-9.15); NEUTROPHILS PERCENT AUTO 55 % (41-73); RDW Coefficient Variation 15.9 % (11.7-14.2); RDW Standard Deviation 58.6 fL (35.1-46.3); Red Blood Cell Count 3.68 M/mm3 (4.30-5.90); White Blood Cell Count 4.36 K/mm3 (4.00-11.30)
[2020-12-20 16:45] LABS: Anion Gap 4 mmol/L (6-16); Blood Urea Nitrogen 13 mg/dL (8-24); Bun/Creatinine Ratio 14.6 (12.0-20.0); CO2, Blood 32 mmol/L (21-32); Chloride, Blood 106 mmol/L (98-108); Creatinine, Blood 0.89 mg/dL (0.60-1.20); Glomerular Filtration Rate >60 (60-); Glucose, Blood 134 mg/dL (70-99); Potassium, Blood 4.1 mmol/L (3.5-5.5); Sodium, Blood 142 mmol/L (136-145)
[2020-12-20 17:52] LABS: Mean Platelet Volume 10.6 fL (9.1-12.4); Platelet Count 113 K/mm3 (150-400)
== END ==
LOC: LAB SHORT 16:32
PROVIDERS: Physician Assistant Surgical
DX: M79.89 Other specified soft tissue disorders (principal)
CPT/HCPCS: 80048; 83880; 85025

== ENCOUNTER 2021-03-07 12:48 | Emergency (ER) | payer OTHER ==
[~2021-03-07] VITALS: Ht 182.9 cm; Wt 83.9 kg
[2021-03-07 13:44] LABS: Ethanol (Alcohol), Blood, Med <3 mg/dL
[2021-03-07 13:47] LABS: Source, Urine Clean Catch
[2021-03-07 13:53] LABS: Appearance, Urine Clear (Clear); Bilirubin, Urine Neg (Neg); Blood, Urine Neg (Neg); Color, Urine Yellow (P-Yellow); Glucose Qualitative, Urine Neg (Neg); Ketones, Urine 1+ (Neg); Leukocyte Esterase, Urine 1+ (Neg); Nitrite, Urine Neg (Neg); Protein, Urine Neg (Neg); Urobilinogen, Urine NORM (Normal)
[2021-03-07 13:59] LABS: BASOPHILS ABSOLUTE AUTO 0.07 K/mm3 (0.00-0.23); BASOPHILS PERCENT AUTO 2 % (0-2); EOSINOPHILS ABSOLUTE AUTO 0.21 K/mm3 (0.00-0.68); EOSINOPHILS PERCENT AUTO 5 % (0-6); Hematocrit 36.8 % (37.0-53.0); Hemoglobin 12.7 g/dL (13.5-17.5); IMMATURE GRAN ABSOLUTE AUTO 0.02 K/mm3 (0.00-0.10); IMMATURE GRAN PERCENT AUTO 1 % (0-1); LYMPHOCYTES ABSOLUTE AUTO 0.94 K/mm3 (0.84-5.20); LYMPHOCYTES PERCENT AUTO 22 % (21-46); MONOCYTES ABSOLUTE AUTO 0.58 K/mm3 (0.16-1.47); MONOCYTES PERCENT AUTO 13 % (4-13); Mean Corpuscular HGB 34.9 pg (26.0-34.0); Mean Corpuscular HGB Conc 34.5 g/dL (31.5-36.5); Mean Corpuscular Volume 101 fL (80-100); Mean Platelet Volume 10.8 fL (9.1-12.4); NEUTROPHILS ABSOLUTE AUTO 2.51 K/mm3 (1.96-9.15); NEUTROPHILS PERCENT AUTO 58 % (41-73); Platelet Count 98 K/mm3 (150-400); RDW Coefficient Variation 13.8 % (11.7-14.2); RDW Standard Deviation 51.3 fL (35.1-46.3); Red Blood Cell Count 3.64 M/mm3 (4.30-5.90); White Blood Cell Count 4.33 K/mm3 (4.00-11.30)
[2021-03-07 14:01] LABS: Alanine Aminotransfer (ALT/SGP 52 U/L (12-78); Albumin, Blood 2.7 g/dL (3.4-5.0); Albumin/Globulin Ratio 0.7 (0.8-1.8); Alk Phos 117 U/L (50-136); Anion Gap 4 mmol/L (6-16); Aspartate Aminotrans (AST/SGOT 60 U/L (12-37); Bilirubin, Total 3.2 mg/dL (0.1-1.0); Blood Urea Nitrogen 10 mg/dL (8-24); Bun/Creatinine Ratio 15.4 (12.0-20.0); CO2, Blood 26 mmol/L (21-32); Calcium, Blood 8.9 mg/dL (8.5-10.1); Chloride, Blood 110 mmol/L (98-108); Creatinine, Blood 0.65 mg/dL (0.60-1.20); Globulin, Blood 3.8 g/dL (2.2-4.0); Glomerular Filtration Rate >60 (60-); Glucose, Blood 122 mg/dL (70-99); Potassium, Blood 4.7 mmol/L (3.5-5.5); Sodium, Blood 140 mmol/L (136-145); Total Protein, Blood 6.5 g/dL (6.4-8.2)
[2021-03-07 14:03] LABS: Acetaminophen, Random <2.0 ug/mL (10.0-30.0)
[2021-03-07 14:04] LABS: Salicylate <1.7 mg/dL (2.8-20.0)
[2021-03-07 14:32] LABS: U Amphetamine Screen Not Detected; U Barbituate Screen Not Detected; U Benzodiazapine Screen Not Detected; U Buprenorphine Screen Not Detected; U Cannabinoids Screen DETECTED; U Cocaine Screen Not Detected; U Methadone Screen Not Detected; U Methamphetamine Screen Not Detected; U Opiates Screen Not Detected; U Oxycodone Screen Not Detected; U Phencyclidine Screen Not Detected; U Propoxyphene Screen Not Detected
[2021-03-07 14:35] LABS: Bacteria Few /hpf; Calcium Oxalate Crystals Few /hpf; Red Blood Cells, Urine 0-2 /hpf (0-2); Squamous Epithelial Cells Few /hpf (Few); White Blood Cells, Urine 0-2 /hpf (0-5)
== END 2021-03-07 14:10 | disposition home or self-care (01) ==
LOC: ER 12:48
PROVIDERS: Emergency Medicine
DX: R41.82 Altered mental status, unspecified (principal); R53.1 Weakness; I10 Essential (primary) hypertension; E78.00 Pure hypercholesterolemia, unspecified; K21.9 Gastro-esophageal reflux disease without esophagitis; Z79.4 Long term (current) use of insulin; Z88.0 Allergy status to penicillin; Z79.899 Other long term (current) drug therapy
CPT/HCPCS: 36415; 80053; 81001; 85025; 87086; 93005; 93010; 99285-25; G0480

== ENCOUNTER → 2021-04-11 | Outpatient (CLI) | payer OTHER ==
[2021-04-11 15:28] LABS: BASOPHILS ABSOLUTE AUTO 0.05 K/mm3 (0.00-0.23); BASOPHILS PERCENT AUTO 1 % (0-2); EOSINOPHILS ABSOLUTE AUTO 0.13 K/mm3 (0.00-0.68); EOSINOPHILS PERCENT AUTO 3 % (0-6); Hematocrit 36.9 % (37.0-53.0); Hemoglobin 12.8 g/dL (13.5-17.5); IMMATURE GRAN ABSOLUTE AUTO 0.04 K/mm3 (0.00-0.10); IMMATURE GRAN PERCENT AUTO 1 % (0-1); LYMPHOCYTES PERCENT AUTO 18 % (21-46); MONOCYTES ABSOLUTE AUTO 0.45 K/mm3 (0.16-1.47); MONOCYTES PERCENT AUTO 12 % (4-13); Mean Corpuscular HGB 34.8 pg (26.0-34.0); Mean Corpuscular HGB Conc 34.7 g/dL (31.5-36.5); Mean Corpuscular Volume 100 fL (80-100); NEUTROPHILS ABSOLUTE AUTO 2.55 K/mm3 (1.96-9.15); NEUTROPHILS PERCENT AUTO 65 % (41-73); RDW Coefficient Variation 14.2 % (11.7-14.2); RDW Standard Deviation 52.8 fL (35.1-46.3); Red Blood Cell Count 3.68 M/mm3 (4.30-5.90); White Blood Cell Count 3.92 K/mm3 (4.00-11.30)
[2021-04-11 15:31] LABS: Alanine Aminotransfer (ALT/SGP 47 U/L (12-78); Albumin, Blood 2.7 g/dL (3.4-5.0); Albumin/Globulin Ratio 0.8 (0.8-1.8); Alk Phos 89 U/L (40-126); Anion Gap 5 mmol/L (6-16); Aspartate Aminotrans (AST/SGOT 52 U/L (12-37); Bilirubin, Total 4.1 mg/dL (0.1-1.0); Blood Urea Nitrogen 14 mg/dL (8-24); CO2, Blood 28 mmol/L (21-32); Calcium, Blood 8.6 mg/dL (8.5-10.1); Chloride, Blood 109 mmol/L (98-108); Globulin, Blood 3.5 g/dL (2.2-4.0); Glomerular Filtration Rate >60 (60-); Glucose, Blood 189 mg/dL (70-99); Potassium, Blood 4.5 mmol/L (3.5-5.5); Sodium, Blood 142 mmol/L (136-145); Total Protein, Blood 6.2 g/dL (6.4-8.2)
[2021-04-11 15:38] LABS: Mean Platelet Volume 11.2 fL (9.1-12.4); Platelet Count 88 K/mm3 (150-400)
== END | disposition home or self-care (01) ==
LOC: LAB SHORT 15:16 → LAB 15:16 → LAB EV 15:16
PROVIDERS: Family Medicine
DX: N39.0 Urinary tract infection, site not specified (principal)
CPT/HCPCS: 80053; 85025; 87086

== ENCOUNTER → 2021-05-30 | Outpatient (CLI) | payer OTHER ==
[2021-05-30 16:38] LABS: BASOPHILS ABSOLUTE AUTO 0.06 K/mm3 (0.00-0.23); BASOPHILS PERCENT AUTO 1 % (0-2); EOSINOPHILS ABSOLUTE AUTO 0.18 K/mm3 (0.00-0.68); EOSINOPHILS PERCENT AUTO 4 % (0-6); Hematocrit 37.6 % (37.0-53.0); Hemoglobin 13.2 g/dL (13.5-17.5); IMMATURE GRAN ABSOLUTE AUTO 0.01 K/mm3 (0.00-0.10); IMMATURE GRAN PERCENT AUTO 0 % (0-1); LYMPHOCYTES ABSOLUTE AUTO 1.09 K/mm3 (0.84-5.20); LYMPHOCYTES PERCENT AUTO 23 % (21-46); MONOCYTES ABSOLUTE AUTO 0.55 K/mm3 (0.16-1.47); MONOCYTES PERCENT AUTO 12 % (4-13); Mean Corpuscular HGB 34.9 pg (26.0-34.0); Mean Corpuscular HGB Conc 35.1 g/dL (31.5-36.5); Mean Corpuscular Volume 100 fL (80-100); NEUTROPHILS ABSOLUTE AUTO 2.77 K/mm3 (1.96-9.15); NEUTROPHILS PERCENT AUTO 59 % (41-73); RDW Coefficient Variation 14.8 % (11.7-14.2); RDW Standard Deviation 54.4 fL (35.1-46.3); Red Blood Cell Count 3.78 M/mm3 (4.30-5.90); White Blood Cell Count 4.66 K/mm3 (4.00-11.30)
[2021-05-30 16:57] LABS: Platelet Count 112 K/mm3 (150-400)
[2021-05-30 17:01] LABS: Alanine Aminotransfer (ALT/SGP 53 U/L (12-78); Albumin, Blood 2.8 g/dL (3.4-5.0); Albumin/Globulin Ratio 0.7 (0.8-1.8); Alk Phos 94 U/L (40-126); Anion Gap 7 mmol/L (6-16); Aspartate Aminotrans (AST/SGOT 60 U/L (12-37); Bilirubin, Total 3.4 mg/dL (0.1-1.0); Blood Urea Nitrogen 14 mg/dL (8-24); Bun/Creatinine Ratio 14.1 (12.0-20.0); CO2, Blood 29 mmol/L (21-32); Calcium, Blood 8.6 mg/dL (8.5-10.1); Chloride, Blood 109 mmol/L (98-108); Creatinine, Blood 0.99 mg/dL (0.60-1.20); Globulin, Blood 3.8 g/dL (2.2-4.0); Glomerular Filtration Rate >60 (60-); Glucose, Blood 152 mg/dL (70-99); Potassium, Blood 4.6 mmol/L (3.5-5.5); Sodium, Blood 145 mmol/L (136-145); Total Protein, Blood 6.6 g/dL (6.4-8.2)
== END | disposition home or self-care (01) ==
LOC: LAB 16:29 → LAB SHORT 16:29
PROVIDERS: Chiropractor
DX: R33.9 Retention of urine, unspecified (principal)
CPT/HCPCS: 80053; 82140; 85025

== ENCOUNTER 2021-06-06 08:45 | Day surgery (SDC) | payer OTHER ==
[~2021-06-06] VITALS: Ht 185.4 cm; Wt 89.5 kg
[2021-06-06] MEDS ORDERED: CALCIUM 500 MG1 EAC2 PO (09:31)
[2021-06-06] MEDS ORDERED: QUETIAPINE FUMA50 M2 PO (09:32)
--- NOTE | 2021-06-06 09:59 | NUR ---
PT HERE WITH SO WILLIAM, IN WC. ASSIST WITH 2 PEOPLE TO BED. PT NOT TALKING, SO REPORTS HE ISN'T HAPPY ABOUT BEING HERE TODAY. History, Chart, Medications and Allergies reviewed before start of procedure. Lungs clear T/O to Auscultation. Patient confirms NPO status and agrees with scheduled surgery. Pre-Op teaching done. Pt verbalizes understanding. Patient States Post-Procedure ride home has been arranged.
--- NOTE | 2021-06-06 10:22 | NUR ---
PT'S SO WILLIAM IS NOT POA. CALLED PT'S MOM LITO WILEY FOR TELEPHONE CONSENT. ENCOURGED SO TO GET THAT PAPERWORK DONE.
--- NOTE | 2021-06-06 10:26 | NUR ---
06/06/21 1026 Edi Bueno History, Chart, Medications and Allergies reviewed before start of procedure. MONITOR INTACT WITH CONTINUOUS PULSE OXIMETRY AND INTERMITTENT BP. 3-LEAD EKG REVIEWED WITH PHYSICIAN PRIOR TO START OF PROCEDURE. O2 VIA N/C INTACT THROUGHOUT SEDATION/PROCEDURE. Bite Block Placed. PATIENT DETERMINED TO BE ASA APPROPRIATE FOR PROPOFOL SEDATION PRIOR TO START OF PROCEDURE BY DR. TOBIAS.
--- NOTE | 2021-06-06 11:22 | NUR ---
Discharge instructions reviewed with patient. Patient verbalizes understanding. Copy given to patient to take home.
--- NOTE | 2021-06-06 11:32 | NUR ---
Discharged via wheelchair to private car for ride home.
== END 2021-06-06 11:42 | disposition home or self-care (01) ==
LOC: ORSCMMR 08:45 → ORSCSDS 10:00 → ORSCMMR 10:00
PROVIDERS: Internal Medicine Gastroenterology
PROC: 0DJ08ZZ Inspection of Upper Intestinal Tract, Via Natural or Artificial Opening Endoscopic (ICD-10-PCS; principal; 2021-06-06 10:00)
DX: K74.60 Unspecified cirrhosis of liver (principal); I86.4 Gastric varices; I85.00 Esophageal varices without bleeding; K76.6 Portal hypertension; K31.89 Other diseases of stomach and duodenum; Z79.4 Long term (current) use of insulin; Z79.899 Other long term (current) drug therapy
CPT/HCPCS: 82947; J2704; J7120

== ENCOUNTER 2021-06-09 12:46 | Inpatient (IN) | payer OTHER ==
[~2021-06-09] VITALS: Ht 185.4 cm; Wt 86.2 kg
[~2021-06-09 12:46] MED LIST changes: +CALCIUM 500 MG1 EAC2 PO; +QUETIAPINE FUMA50 M2 PO
[2021-06-09 13:25] LABS: Calcium, Ionized (POC) 1.17 mmol/L (1.10-1.46); Chloride (POC) 105 mmol/L (98-108); Creatinine (POC) 0.7 mg/dL (0.8-1.3); Glucose (ISTAT POC) 125 mg/dL (70-99); Hemoglobin (POC) 13.6 g/dL (13.5-17.5); Potassium (POC) 4.6 mmol/L (3.5-5.5); Sodium (POC) 139 mmol/L (135-148); Total CO2 (POC) 23 mmol/L (21-32)
[2021-06-09 13:28] LABS: BASOPHILS ABSOLUTE AUTO 0.03 K/mm3 (0.00-0.23); BASOPHILS PERCENT AUTO 1 % (0-2); EOSINOPHILS ABSOLUTE AUTO 0.02 K/mm3 (0.00-0.68); EOSINOPHILS PERCENT AUTO 1 % (0-6); Hematocrit 40.2 % (37.0-53.0); Hemoglobin 14.1 g/dL (13.5-17.5); IMMATURE GRAN ABSOLUTE AUTO 0.01 K/mm3 (0.00-0.10); IMMATURE GRAN PERCENT AUTO 0 % (0-1); LYMPHOCYTES ABSOLUTE AUTO 0.64 K/mm3 (0.84-5.20); LYMPHOCYTES PERCENT AUTO 16 % (21-46); MONOCYTES ABSOLUTE AUTO 0.72 K/mm3 (0.16-1.47); MONOCYTES PERCENT AUTO 17 % (4-13); Mean Corpuscular HGB 35.3 pg (26.0-34.0); Mean Corpuscular HGB Conc 35.1 g/dL (31.5-36.5); Mean Corpuscular Volume 101 fL (80-100); Mean Platelet Volume 10.2 fL (9.1-12.4); NEUTROPHILS ABSOLUTE AUTO 2.72 K/mm3 (1.96-9.15); NEUTROPHILS PERCENT AUTO 66 % (41-73); Platelet Count 65 K/mm3 (150-400); RDW Coefficient Variation 14.6 % (11.7-14.2); RDW Standard Deviation 54.1 fL (35.1-46.3); White Blood Cell Count 4.14 K/mm3 (4.00-11.30)
[2021-06-09 13:44] LABS: Alanine Aminotransfer (ALT/SGP 64 U/L (12-78); Albumin, Blood 2.6 g/dL (3.4-5.0); Albumin/Globulin Ratio 0.6 (0.8-1.8); Alk Phos 97 U/L (50-136); Anion Gap 5 mmol/L (6-16); Aspartate Aminotrans (AST/SGOT 93 U/L (12-37); Bilirubin, Total 3.2 mg/dL (0.1-1.0); Blood Urea Nitrogen 11 mg/dL (8-24); Bun/Creatinine Ratio 13.3 (12.0-20.0); CO2, Blood 26 mmol/L (21-32); Calcium, Blood 8.5 mg/dL (8.5-10.1); Chloride, Blood 108 mmol/L (98-108); Creatinine, Blood 0.83 mg/dL (0.60-1.20); Globulin, Blood 4.2 g/dL (2.2-4.0); Glomerular Filtration Rate >60 (60-); Glucose, Blood 131 mg/dL (70-99); Potassium, Blood 4.5 mmol/L (3.5-5.5); Sodium, Blood 139 mmol/L (136-145); Total Protein, Blood 6.8 g/dL (6.4-8.2)
[2021-06-09 14:16] LABS: Source, Urine Catheter
[2021-06-09 14:19] LABS: International Normalized Ratio 1.46
[2021-06-09 14:20] LABS: Appearance, Urine Clear (Clear); Bilirubin, Urine Neg (Neg); Blood, Urine 5+ (Neg); Color, Urine Yellow (P-Yellow); Glucose Qualitative, Urine Neg (Neg); Ketones, Urine 1+ (Neg); Leukocyte Esterase, Urine 1+ (Neg); Nitrite, Urine Neg (Neg); Protein, Urine 2+ (Neg); Urobilinogen, Urine 2+ (Normal)
[2021-06-09 14:28] LABS: Red Blood Cells, Urine 50-100 /hpf (0-2)
[2021-06-09 14:33] LABS: SARS-Cov-2 (COVID-19) PCR, MMC POSITIVE (NEGATIVE)
[2021-06-09 14:36] LABS: Bacteria Rare /hpf; White Blood Cells, Urine 0-2 /hpf (0-5)
[2021-06-09 14:41] LABS: Squamous Epithelial Cells Few /hpf (Few)
[2021-06-09] MEDS ORDERED: INSULANPEN SC (15:06)
--- NOTE | 2021-06-09 18:42 | NUR ---
DAY SURGERY NURSES AT BEDSIDE SETTING UP FOR ENDOSCOPY. THIS RN AND DR. MICHELE SPOKE WITH TIKI MASTERS ON THE PHONE. MOM IS THE LEGAL DPOA OF THE PATIENT; NOT SIGNIFICANT OTHER Frank. MOM MADE [place] A DNAR/DNI WHICH IS NOW UPDATED IN THE SYSTEM. PT IS EXTREMELY DELAYED AND ONLY ONE WORD ANSWERS, AT TIMES. BILATERAL ARMS ARE TREMOROUS. BLE ARE VERY WEAK, NOT ABLE TO FOLLOW COMMANDS. PT IS STIFF ALL OVER. CURRENTLY ON RA, VSS. LENTZ IN PLACE WITH YELLOW URINE DRAINING. SIGNIFICANT OTHER AT BEDSIDE.
--- NOTE | 2021-06-09 19:31 | NUR ---
PATIENT AWAKE, FOLLOWING SIMPLE DIRECTIONS. SPEECH VERY DIFFICULT TO UNDERSTAND. PATIENTS S/O WILLIAM AT BEDSIDE, NOW WAITING IN WAITING ROOM. UPPER ENDO STARTED. LUNG SOUNDS CLEAR, DECREASED BASES. SINUS RHYTHM
--- NOTE | 2021-06-09 19:37 | NUR ---
06/09/211936 Awa Castellon PROCEDURE IN ICU 5. History, Chart, Medications and Allergies reviewed before start of procedure.PATIENT DETERMINED TO BE ASA APPROPRIATE FOR PROPOFOL SEDATION PRIOR TO START OF PROCEDURE BY . MONITOR INTACT WITH CONTINUOUS PULSE OXIMETRY AND INTERMITTENT BP.3-LEAD EKG REVIEWED WITH PHYSICIAN PRIOR TO START OF PROCEDURE.O2 VIA POM INTACT THROUGHOUT SEDATION/PROCEDURE.
--- NOTE | 2021-06-09 19:49 | NUR ---
SCOPE COMPLETE, PATIENT BACK TO BASELINE. BIOX 96% ON RA. SUCTIONING BLOODY ORAL SECRETIONS
[2021-06-09 20:03] LABS: Hematocrit 34.6 % (37.0-53.0); Hemoglobin 12.4 g/dL (13.5-17.5)
--- NOTE | 2021-06-09 20:30 | NUR ---
DOCTOR JATINDER NOTIFIED OF REPEAT H&H, WILL CONTINUE TO MONITOR FOR BLEEDING AND RECHECK IN AM
--- NOTE | 2021-06-09 23:55 | NUR ---
PATIENT CONTINUES TO BE SLOW TO RESPOND, ANSWERING QUESTIONS WITH ONE OR TWO WORDS, NOT ALWAYS MAKING SINCE. CONTINUES TO BE VERY STIFF WITH SLIGHT TREMOR TO UPPER EXTREMITIES, PULLING ON PAS STOCKINGS. GIVEN SIP OF WATER LUIS WELL, WHEN GIVEN ICE CHIP PATIENT CHEW UP CHIP AND SWALLOW WITHOUT DIFFICULTY. CONTINUE TO HAVE BRIGHT RED BLOOD IN MOUTH WITH ORAL CARE. OCCASIONAL MOIST COUGH, LUNG SOUNDS REMAIN CLEAR DECREASED IN BASES, BIOX 98% ON RA. AT 2100 BOTH PROTONIX AND SANDOSTATIN BOTH OFF. PROTONIX CHANGED TO BID PUSH.
[2021-06-10 03:36] LABS: BASOPHILS ABSOLUTE AUTO 0.02 K/mm3 (0.00-0.23); BASOPHILS PERCENT AUTO 0 % (0-2); EOSINOPHILS ABSOLUTE AUTO 0.12 K/mm3 (0.00-0.68); EOSINOPHILS PERCENT AUTO 2 % (0-6); Hematocrit 35.2 % (37.0-53.0); Hemoglobin 12.9 g/dL (13.5-17.5); IMMATURE GRAN ABSOLUTE AUTO 0.02 K/mm3 (0.00-0.10); IMMATURE GRAN PERCENT AUTO 0 % (0-1); LYMPHOCYTES ABSOLUTE AUTO 0.88 K/mm3 (0.84-5.20); LYMPHOCYTES PERCENT AUTO 16 % (21-46); MONOCYTES ABSOLUTE AUTO 0.89 K/mm3 (0.16-1.47); MONOCYTES PERCENT AUTO 17 % (4-13); Mean Corpuscular HGB 35.3 pg (26.0-34.0); Mean Corpuscular HGB Conc 36.6 g/dL (31.5-36.5); Mean Platelet Volume 10.8 fL (9.1-12.4); NEUTROPHILS ABSOLUTE AUTO 3.46 K/mm3 (1.96-9.15); NEUTROPHILS PERCENT AUTO 64 % (41-73); Platelet Count 53 K/mm3 (150-400); RDW Coefficient Variation 14.2 % (11.7-14.2); RDW Standard Deviation 50.4 fL (35.1-46.3); Red Blood Cell Count 3.65 M/mm3 (4.30-5.90); White Blood Cell Count 5.39 K/mm3 (4.00-11.30)
[2021-06-10 03:46] LABS: Mean Corpuscular Volume 96 fL (80-100)
[2021-06-10 03:48] LABS: International Normalized Ratio 1.53; Prothrombin Time Results 15.6 Sec (9.7-11.5)
[2021-06-10 03:52] LABS: Alanine Aminotransfer (ALT/SGP 50 U/L (12-78); Albumin, Blood 2.2 g/dL (3.4-5.0); Albumin/Globulin Ratio 0.6 (0.8-1.8); Alk Phos 72 U/L (50-136); Anion Gap 4 mmol/L (6-16); Aspartate Aminotrans (AST/SGOT 77 U/L (12-37); Bilirubin, Total 3.4 mg/dL (0.1-1.0); Blood Urea Nitrogen 9 mg/dL (8-24); Bun/Creatinine Ratio 12.8 (12.0-20.0); CO2, Blood 27 mmol/L (21-32); Calcium, Blood 7.8 mg/dL (8.5-10.1); Chloride, Blood 106 mmol/L (98-108); Globulin, Blood 3.6 g/dL (2.2-4.0); Glomerular Filtration Rate >60 (60-); Glucose, Blood 149 mg/dL (70-99); Sodium, Blood 137 mmol/L (136-145); Total Protein, Blood 5.8 g/dL (6.4-8.2)
--- NOTE | 2021-06-10 06:07 | NUR ---
SUMMARY PATIENT OPENS EYES TO VERBAL STIMULI, MEREDITH SPONT, BUT HOLDING THEM RIDGED AND RESISTANT TO REPOSITIONING. FOLLOWING SIMPLE DIRECTIONS OFF AND ON. FREQUENT ORAL CARE T/O NIGHT. CONTINUE TO HAVE BLOODY ORAL SECRETIONS. LUIS ICE CHIPS AND SMALL SIPS OF WATER WITHOUT DIFFICULTY. OCCASIONAL STRONG MOIST COUGH, MAINTAINING BIOX >90 T/O NIGHT. LENTZ DRAINING LIGHT JB URINE SMALL AMT OF LEAKING EARLY THIS MORNING.
--- NOTE | 2021-06-10 09:23 | NUR ---
Plan is hospice care for patient family coming in to discuss.
--- NOTE | 2021-06-10 09:34 | NUR ---
AM NOTE... ASSUMED CARE OF PT AT 0700, PT IS A&Ox1 WAKE TO VERBAL STIMULATION AND WILL LOOK TOWARDS STAFF WHEN HIS NAME IS CALLED BUT WAS NOT FOLLOWING COMMANDS. PT IS ABLE TO MOVE ALL EXTREMITIES WEAKLY. PT IS ON RA WITH O2 SATS >90% L/S COARSE WITH SCATTERED WHEEZES T/O WITH A MOIST NON-PRODUCTIVE COUGH. BT PRESENT AND HYPOACTIVE, ABD IS SOFT TO PALP. PT HAS VERY LIGHT PINK TINGED ORAL SECRETIONS. LENTZ IS PATENT AND DRAINING CLEAR BRIGHT YELLOW URINE TO GRAVITY. NO BM REPORTED BY NOC SHIFT RN. PT IS IN NSR IN THE 60'S, STABLE BP WITH MAPS >65, NO EDEMA NOTED ON ASSESSMENT. PT IS CURRENTLY ABLE TO HANDLE HIS ORAL SECRETIONS WITH NO SIGNS OF ASPIRATION NOTED DURING ASSESSMENT. THE PT'S S.O. WILLIAM REQUESTED TO BE AT THE BEDSIDE WHEN THE PROVIDER WAS THERE TO ASK QUESTIONS, PER THE PT'S MOTHER GUERRERO THIS WAS OKAY LONG THE DNR WAS NOT CHANGED. PER WILLIAM SHE WANTED THE PT TO COME HOME. PALLIATIVE CARE RN NOTIFIED AND INVOLVED WITH THE CASE AND AGREEABLE TO THE PT GOING HOME WITH HOSPICE. WILL CONTINUE TO MONITOR.
--- NOTE | 2021-06-10 10:23 | NUR ---
Palliative care consult requested. Notes from palliative care nurse Keiry this am with mention of hospice discussion with family. Plan to discuss further with Keiry to determine if family has made that final decision and if preferred hospice provider has been discussed. Anticipated needs at discharge to include: hospice referral, DME, hospice orders for meds and oxygen if needed.
[2021-06-10 11:37] LABS: Hematocrit 38.8 % (37.0-53.0)
--- NOTE | 2021-06-10 13:58 | NUR ---
PT UPDATE.... THE PT'S S.O. WILLIAM WAS AT THE BEDSIDE TO SPEAK WITH THE PROVIDER, THE PT'S S.O. WANTED THE PT TO BE D/C'd HOME TODAY, THE PROVIDER STATED THAT HE DID NOT FEEL THE PT WAS MEDICALLY STABLE TO GO HOME TODAY. THE SPEECH THERAPIST WAS AT THE BEDSIDE DURING THIS TIME, PER THE SPEECH THERAPIST THE PT FAILED THE EVALUATION AND WAS MADE NPO EXCEPT OCC SMALL ICE CHIPS. NEW LABS WERE ALSO DRAWN AT THIS TIME. THE PT'S S.O. BECAME VERY EMOTIONAL AND AGITATED SAYING THINGS LIKE "HE IS LIKE THIS BECAUSE YOU PEOPLE HAVE LEFT HIM IN BED SO MUCH!" THE PT'S WAS EDUCATED ON THE PROCESS OF HAVING PT/OT EVALUATE THE PTs IF NURSING STAFF DO NOT FEEL IT IS SAFE TO GET THEM UP. THE PT'S S.O. VERBALIZED HER UNDERSTANDING OF THIS. SHE THEN BECAME UPSET AGAIN ABOUT THE PT NOT BEING ABLE TO TAKE HIS LACTULOSE AND OTHER MEDICATIONS, SHE VERBALIZED HER CONCERNS OVER HIS AMMONIA LEVELS INCREASING. THE PT'S S.O. WAS INFORMED ON THE NEW LABS THAT THIS RN JUST MEME AND THAT THEY INCLUDED HIS AMMONIA LEVEL. SHE WAS THEN INFROMED THAT THE ONLY ROUT OF THE PT BEING ABLE TO TAKE THE LACTULOSE AT THIS TIME WOULD BE PER-RECTAL. SHE THEN BECAME MORE UPSET AND AGITATED STATING "I DO NOT AGREE THIS THAT!" WHEN THIS RN ASKED WHY SHE THEN STATED "BECAUSE THE LAST TIME HE WAS HERE AND YOU PEOPLE DID THAT HE GOT UPSET BECAUSE IT WAS UNCOMFORTABLE AND HE HAD TO BE RESTRAINED!" THE PT'S S.O. WAS EDUCATED ON THIS BEING THE ONLY ROUT AVAILABLE TO GIVE THIS MEDICATION. SHE AGAIN STATED "I DO NOT WANT HIM TO HAVE THAT." OT WAS IN THE ROOM TO EVALUATE THE PT, PER OT MASON Muller THE PT IS NOT SAFE TO STAND, HE SHOULD BE A LIFT ONLY. PER THE OT THE PT WAS NOT ABLE TO FOLLOW DIRECTIONS AND WAS VERY STIFF (SEE OT EVALUATION NOTES). DR. CASSIDY WAS CALLED AND UPDATED WHEN THE LABS WERE RESULTED, HE GAVE A TELEPHONE ORDER TO GIVE A LACTULOSE ENEMA DC. THIS RN ATTEMPTED TO CALL THE PT'S MOTHER WHO IS THE MEDICAL POA D/T THE PT AND HIS S.O. NOT BEING HOWEVER SHE DID NOT ANSWER THE PHONE. THIS RN CALLED THE PT'S S.O. WILLIAM TO UPDATE HER ON THE LAB RESULTS, THE RESULT OF THE OT EVALUATION. WILLIAM SAID "I DO NOT AGREE WITH GIVING HIM THE RECTAL LACTULOSE, I DON'T BELEIVE YOUR LAB NUMBERS HE IS TO AWAKE FOR HIS AMMONIA LEVEL TO BE THAT HIGH. AND THATS WHY I WANTED TO BE THERE FOR THE PT/OT EVALUATION BECAUSE HE NEEDS SOMEONE TO BE THERE! THE REASON HE COULDN'T GET UP OUT OF BED IS BECAUSE YOU PEOPLE WOULDN'T GET HIM UP OUT OF BED FOR 24HRS!" WILLIAM WAS EDUCATED AGAIN ON WHY THE PT/OT EVALUATION WAS DONE PRIOR TO NURSING STAFF GETTING HIM UP OUT OF BED. SHE WAS ALSO EDUCATED ON THE DC LACTULOSE BEING THE ONLY SAFE ROUT AT THIS TIME. SHE SAID AGAIN "I DO NOT AGREE WITH THAT AND I WILL BE THERE AT 2PM AND HE IS NOT TO BE GIVEN THAT!" REPORT WAS GIVEN TO CHUCK RN IN PCU, THE PT'S BELONGINGS WERE PACKED AND SENT WITH THE PT.
--- NOTE | 2021-06-10 15:57 | NUR ---
pt moved to u, girfrienchuck at bedside. She is stating she is decision maker. Contact with luis nurse case management to get contact infromation for mother. will ask luis to speak with dr sow for support. kps score is 30%
--- NOTE | 2021-06-10 16:43 | NUR ---
pt mothers [place] number is [phone]. [facility] and pt advocate met with pt charly. Will need to assist with acceptance of prognosis.
[2021-06-10 16:55] LABS: Hematocrit 40.4 % (37.0-53.0); Hemoglobin 14.7 g/dL (13.5-17.5)
--- NOTE | 2021-06-10 17:42 | NUR ---
Met with patient's girlfriend Alanis and Katelynn patient advocate this afternoon per request from advocate. Listened to her concerns and provided support. It seems that Alanis might not fully understand the extent of patient's condition at this point. I briefly touched on hospice vs. home health. Alanis seemed to move past the idea of hospice to discuss the care that she is currently providing and would like to continue to provide. We shifted to discussion regarding home health services and how they can add to the care that she is already providing. She seemed receptive to that discussion. Talked with palliative care nurse Keiry and advised that Alanis would likely benefit from a conversation regarding patient's current condition and how near could be to end of life. Suggested that his mother also be involved in that conversation if possible. Alanis is not Je's POA. She understand that without being designated as POA and not being , she is unable to make decisions for patient. Again, I suggested that she communicate with his mother to help in making those decision as needed.
--- NOTE | 2021-06-10 20:14 | NUR ---
SHIFT SUMMARY PT UNABLE TO ANSWER QUESTIONS, SIGNIFICANT OTHER AT BEDSIDE. PT TEMP ELEVATED UPON ARRIVAL TO UNIT, ICE PACKS PLACED, VSS OTHERWISE. PT REMAINED NPO AFTER FAILING SPEECH EVAL. PT HAS LENTZ DRAING TO GRAVITY. RECTAL LACTULOSE ADMINISTERED PER EMAR, SIGNIFICAN OTHER DISPLAYED DISPLEASURE OF THE PROCEDURE.
--- NOTE | 2021-06-10 20:22 | NUR ---
SHIFT SUMMARY PT IS LETHARGIC AND NOT RESPONSIVE, WAS STARING OFF WITH ONE ARM EXTENDED. VITAL SIGNS ARE STABLE. PT IS ON 2L NC WITH SATS ABOVE 92%. PT HAD A LARGE WATERY BM, AND WAS CLEANED UP. WAS VERY STIFF TO TURN. PT DID NOT RESPOND WITH WORDS OR SOUND, OR LOOK AT THIS NURSE AT ANYTIME. CALL LIGHT IS WITHIN REACH. PT IS BEING MONITORED BY CENTRAL MONITOR. BED ALARM IS ON. WILL CONTINUE TO MONITOR.
--- NOTE | 2021-06-10 22:00 | NUR ---
PT'S SIGNIFICANT OTHER, WILLIAM CALLED FOR AN UPDATE OF PT. CONVERSATION WAS PLEASANT. SHE WILL CALL IN THE MORNING FOR ANOTHER UPDATE.
--- NOTE | 2021-06-11 06:05 | NUR ---
SHIFT SUMMARY PT HAS HAD NO ACUTE CHANGES. VITALS ARE STABLE AND IS ON 3L NC WITH SATS >92%. PT IS UNABLE TO TALK. PT IS CATATONIC. LENTZ IN PLACE. PT HAS BLISTER OR SORES IN MOUTH, THERE ARE WHITE SPOTS ON ROOF OF MOUTH, AND MOUTH IS BLOODY, RED AND SORE. CALL LIGHT IS WITHIN REACH.
[2021-06-11 10:55] LABS: BASOPHILS ABSOLUTE AUTO 0.02 K/mm3 (0.00-0.23); BASOPHILS PERCENT AUTO 0 % (0-2); EOSINOPHILS ABSOLUTE AUTO 0.02 K/mm3 (0.00-0.68); EOSINOPHILS PERCENT AUTO 0 % (0-6); IMMATURE GRAN ABSOLUTE AUTO 0.03 K/mm3 (0.00-0.10); IMMATURE GRAN PERCENT AUTO 1 % (0-1); LYMPHOCYTES ABSOLUTE AUTO 0.95 K/mm3 (0.84-5.20); LYMPHOCYTES PERCENT AUTO 16 % (21-46); MONOCYTES ABSOLUTE AUTO 0.98 K/mm3 (0.16-1.47); MONOCYTES PERCENT AUTO 16 % (4-13); Mean Corpuscular HGB 35.5 pg (26.0-34.0); Mean Corpuscular HGB Conc 36.8 g/dL (31.5-36.5); Mean Corpuscular Volume 96 fL (80-100); NEUTROPHILS ABSOLUTE AUTO 4.14 K/mm3 (1.96-9.15); NEUTROPHILS PERCENT AUTO 67 % (41-73); Platelet Count 57 K/mm3 (150-400); RDW Coefficient Variation 14.3 % (11.7-14.2); RDW Standard Deviation 50.9 fL (35.1-46.3); Red Blood Cell Count 3.94 M/mm3 (4.30-5.90); White Blood Cell Count 6.14 K/mm3 (4.00-11.30)
[2021-06-11 11:09] LABS: Alanine Aminotransfer (ALT/SGP 44 U/L (12-78); Albumin, Blood 2.2 g/dL (3.4-5.0); Albumin/Globulin Ratio 0.6 (0.8-1.8); Alk Phos 68 U/L (50-136); Anion Gap 4 mmol/L (6-16); Aspartate Aminotrans (AST/SGOT 63 U/L (12-37); Bilirubin, Total 4.4 mg/dL (0.1-1.0); Blood Urea Nitrogen 11 mg/dL (8-24); Bun/Creatinine Ratio 17.2 (12.0-20.0); CO2, Blood 28 mmol/L (21-32); Calcium, Blood 8.4 mg/dL (8.5-10.1); Chloride, Blood 106 mmol/L (98-108); Creatinine, Blood 0.64 mg/dL (0.60-1.20); Globulin, Blood 3.9 g/dL (2.2-4.0); Glomerular Filtration Rate >60 (60-); Glucose, Blood 135 mg/dL (70-99); Potassium, Blood 3.7 mmol/L (3.5-5.5); Sodium, Blood 138 mmol/L (136-145); Total Protein, Blood 6.1 g/dL (6.4-8.2)
[2021-06-11 11:14] LABS: International Normalized Ratio 1.42; Prothrombin Time Results 14.6 Sec (9.7-11.5)
--- NOTE | 2021-06-11 16:57 | NUR ---
Spoke with Primary RN Clair, outdoor adventure leader Shamika, Elizabeth Jack/C Jeremy Middleton, Pt Advocate Nahed, and Edi Day from ethics. Discussed appropriate and legal decision maker appointment. By [place] if no legal decision maker has been documented the decision making falls to Pt's mother. Pt's mother is deferring decisions to Pt's girlfriend. Pt does have a daughter but has not been involved with Pt her entire life and [place] according to Pt's mother. Girlfriend Zulma is decision maker. Discussed Pt's condition with care team and goals of care should be considered including the option for hospice. Received call from Pt's mother and confirmed that she is deferring to girl friend Zulma. Answered questions and educated on disease process. Discussed hospice as an option with Deangelo appearing to be in agreement if Zulma is in agreement. Met with Pt's girlfriend Zulma in Palliative Care conference room. Zulma is tearful at times and this RN offered emotional support. Dr Sheffield recently spoke with Zulma. Educated on hospice philosophy with V/U made by Zulma. Zulma confirms the goal is hospice and would like Pt D/C home tomorrow. Discussed hospice agencies to choose from with Zulma opting for agency that is available the soonest. Answered question and offered therapeutic listening. Escorted Zulma back to Pt's room. Provided Palliative Care contact information and instructed to call with any questions or concerns. Spoke with Elizabeth Jack/C Jeremy Middleton and relayed family wishes. Emi will start the hospice referral. Palliative Care will remain available.
--- NOTE | 2021-06-11 18:41 | NUR ---
0725-Rec'd pt this morning, responds minimally to pain when stimulated. Opens eyes to voice when asked repeatedly. Vital signs stable. Pt is requring more O2 as ghost writer rec'd pt on 4LNC but currenlty at 10LNC with humidifier. Pt's gums noted red, patchy and irritated, oral care done several times this shift with some improvement. Pt is strictly NPO due to swallowing difficulty. Suctioned multiple times with dark blood secretions. Pt's significant other was at bedside today during visiting hours at 1400 to 1800, Dr. Sheffield had a conversation with her about plan of care, hospice was agreed upon and palliative RN initiated the protocol, pt will be discharging to hospice tomorrow 06/12/21 pending hospital equipment to home is available and ready. No acute changes this shift besides increasing O2 demands, will endorse pt care to merchandising execution associate RN. Pt's S/O-Zulma recorded the conversation on her telehpone and ghost writer was a witness.
--- NOTE | 2021-06-12 06:42 | NUR ---
SHIFT SUMMARY PATIENT IS RESTING COMFORTABLY IN BED. BED IS IN LOW POSITION. CALL LIGHT IS IN REACH. PATIENT DID NOT TALK LAST NIGHT ORAL CARE WAS PERFORMED AT LEASE Q 2 HRS. THE PATIENT WAS REPOSITIONED. NO FACIAL CUE HE WAS IN PAIN. PATIENT DID NOT PUT OUT A LOT OF URINE BUT PATIENT IS NOT ON CONTINUOUS FLUID AND HE IS CURRENTLY NPO. NO ACUTE EVENTS DURING THE NIGHT. HIS VITALS WERE STABLE DURING THE NIGHT. WILL CONTINUE TO MONITOR. REPORT WILL BE GIVEN TO DAY SHIFT RN.
--- NOTE | 2021-06-12 09:58 | NUR ---
Hospice services discussed with patient's girlfriend yesterday by Dr. Sheffield and palliative care nurse Edi. Patient's girlfriend and mother agreeable that hospice is the best option for pt. at this time. Chifrienchuck Thapa would like to take pt. home on hospice. Contacted [facility] in the evening yesterday and they are able to provide same day hospice intake for pt. on 06/12/21. Provided them with Alanis's contact information. Advised that pt. will need a hospital bed, over the bed table, and Oxygen with high-flow regulator delivered in the morning. Spoke with Deandre at [facility] this am. Confirmed they have received my fax that included chart notes. All DME will be delivered this morning. Arranged transportation for 12:[address] [facility] Blue form completed and will be delivered to lock box outside of room with packet. Moville notified of transport time. Intake will occur at 1pm. Updated Alanis and nurse caring for pt.
--- NOTE | 2021-06-12 10:19 | NUR ---
Case Conference Note Spoke with [place] D/C Slide Fastener Repairer Emi, rubber turner Bartolo, Girlfriend Zulma, and Pt's mother Deangelo. Discussed case and plan. Pt to D/C home with hospice today. Plan for transport to pick Pt up at 1230. Family report no concerns at this time. Palliative Care will remain available.
--- NOTE | 2021-06-12 14:22 | NUR ---
1245-Pt discharged to home with hospice care, transport was here at 1240 and pt left PCU at 1300, all belongings accompanied pt. Both PIV's and extended dwell IV discontinued at the time to transfer.
== END 2021-06-12 13:05 | disposition hospice, home (50) | DRG 377 ==
LOC: ER 12:46 → ICUW 15:28 → ICUE 15:28 → PCU 06-10 14:04
PROVIDERS: Internal Medicine; Internal Medicine Gastroenterology; Physician Assistant; ADMIT Family Medicine
PROC: 0DJ08ZZ Inspection of Upper Intestinal Tract, Via Natural or Artificial Opening Endoscopic (ICD-10-PCS; principal; 2021-06-09 18:30)
DX: K25.4 Chronic or unspecified gastric ulcer with hemorrhage (principal); U07.1 COVID-19; E51.2 Wernicke's encephalopathy; K76.6 Portal hypertension; J32.9 Chronic sinusitis, unspecified; I85.10 Secondary esophageal varices without bleeding; F06.1 Catatonic disorder due to known physiological condition; K70.31 Alcoholic cirrhosis of liver with ascites; I10 Essential (primary) hypertension; K31.89 Other diseases of stomach and duodenum; E78.00 Pure hypercholesterolemia, unspecified; K72.10 Chronic hepatic failure without coma; E11.42 Type 2 diabetes mellitus with diabetic polyneuropathy; F17.210 Nicotine dependence, cigarettes, uncomplicated; I86.4 Gastric varices; F10.11 Alcohol abuse, in remission; D69.6 Thrombocytopenia, unspecified; Z66 Do not resuscitate; Z88.0 Allergy status to penicillin; Z79.899 Other long term (current) drug therapy
CPT/HCPCS: 36415; 51702; 70450; 71045; 80047; 80053; 81001; 82140; 82272; 82947; 85014; 85018; 85025; 85610; 85730; 86850; 86900; 86901; 87040; 87086; 92610; 93005; 93010; 94762; 96365-59; 96366-59; 96367-59; 96368; 96376-59; 97166; 99285-25; A9270; C1751; C9113; G0480; J0171; J0696; J1430; J2354; J2704; J3411; J7030; J7050; J7120; U0004